=== PATIENT | female | born 1990 | race Caucasian/White ===

== ENCOUNTER 2020-01-24 02:26 | Observation (INO) | payer BC ==
[2020-01-24] MEDS ORDERED: Tranexamic Acid 1,000 MG in Sodium Chloride 0.9% 100 ML IV ONE ×2 (02:29→03:05)
[2020-01-24] MEDS ORDERED: Calcium Gluconate 10% 1 GM/10 ML SDV IVPUSH ONE ×3 (02:29→19:44)
[2020-01-24] MEDS ORDERED: ePHEDrine 50 MG/ML SDV ONE (02:49)
[2020-01-24] MEDS ORDERED: Midazolam 1 MG/ML 2 ML SDV ONE (02:49)
[2020-01-24] MEDS ORDERED: Sodium Chloride 0.9% 20 ML ONE (02:49)
[2020-01-24] MEDS ORDERED: fentaNYL 250 MCG/5 ML SDV ONE (02:49)
[2020-01-24] MEDS ORDERED: ceFAZolin 1 GM Vial ONE (02:49)
[2020-01-24] MEDS ORDERED: Etomidate 2 MG/ML 20 ML SDV IVPUSH ONE (02:49)
[2020-01-24] MEDS ORDERED: Calcium Chloride 10% 1 GM/10 ML Syringe IVPUSH PRN (03:06)
[2020-01-24] MEDS ORDERED: fentaNYL 100 MCG/2 ML SDV ONE (03:07)
[2020-01-24] MEDS ORDERED: EPINEPHrine 1 MG in Sodium Chloride 0.9% 100 ML IV ONE (03:10)
[2020-01-24] MEDS ORDERED: Clindamycin Phosphate in D5W 900 MG in Premix Bag 1 BAG IV ONE ×2 (03:24)
[2020-01-24] MEDS ORDERED: Atropine 0.1 MG/ML 10 ML Syringe IVPUSH PRN ×2 (03:36)
[2020-01-24] MEDS ORDERED: fentaNYL 100 MCG/2 ML SDV IVPUSH PRN (03:36)
[2020-01-24] MEDS ORDERED: Naloxone 0.4 MG/ML Syringe IVPUSH PRN (03:36)
[2020-01-24] MEDS ORDERED: 50% Dextrose in Water 50 ML Syringe IVPUSH PRN (03:36)
[2020-01-24] MEDS ORDERED: Albuterol 0.083% 2.5 MG/3 ML Neb Soln NEB PRN (03:36)
[2020-01-24] MEDS ORDERED: EPINEPHrine 1:10,000 1 MG/10 ML Syringe IVPUSH PRN (03:36)
[2020-01-24 03:51] LABS: BLOOD UREA NITROGEN,BUN 12 mg/dL (7.0-18.0); CARBON DIOXIDE,CO2 16.6 mmol/L (21.0-32.0); CHLORIDE,CL 105 mmol/L (98-107); GLUCOSE RANDOM 193 mg/dL (74-106); SODIUM,NA 136 mmol/L (136-145)
[2020-01-24] MEDS ORDERED: Phenylephrine 10 MG in Sodium Chloride 0.9% 99 ML IV SCH (04:15)
[2020-01-24] MEDS: Lactated Ringers 1,000 ML IV SCH ×3 (04:15→18:21)
--- NOTE | 2020-01-24 04:28 | PCM.SN.2 ---
- Free Text/Narrative Note: Pt presented to ER in hypovolemic shock. Dr Donohue at the bedside, consent obtained, pt taken directly to OR. CBC, CMP, Mg, Lactate, fibrinogen, pt/ptt, type and cross matched ordered. FFP 2 units ordered. Rt femoral groin line in place on arrival. Lt 2 liters of crystalloid intra-op for Lactate 5.8 Clindamycin 900mg IV started in PACU Transexamic Acid 1 gram IV over 10 minutes given intra-op; followed by Transexamic acid 1 gram IV over 8 hrs. LR 150mL/Hr phenylphrine 4mcg/min
--- NOTE | 2020-01-24 04:32 | PCM.PRNOTE ---
- Free Text/Narrative Note: Arterial line placement: Rt. wrist strapped and prepped with betadine. Arrow arterial kit used. Placement of the line very easy. Patient was under anesthesia already during line placement, tolerated well.
[2020-01-24] MEDS ORDERED: Promethazine 25 MG/ML SDV IM PRN (04:37)
[2020-01-24] MEDS ORDERED: Acetaminophen 325 MG Tab PO PRN (04:37)
[2020-01-24] MEDS ORDERED: Ondansetron 4 MG/2 ML SDV IVPUSH PRN (04:37)
[2020-01-24] MEDS ORDERED: Ibuprofen 600 MG Tab PO PRN (04:37)
[2020-01-24] MEDS ORDERED: Morphine 4 MG/ML Syringe IVPUSH PRN (04:37)
[2020-01-24] MEDS ORDERED: Magnesium Sulfate/Water 2 GM in Premix Bag 1 BAG IV ONE (04:39)
[2020-01-24] MEDS ORDERED: diphenhydrAMINE 50 MG/ML SDV ONE (04:52)
[2020-01-24] MEDS ORDERED: diphenhydrAMINE 50 MG/ML SDV IVPUSH ONE (04:52)
--- NOTE | 2020-01-24 04:52 | PCM.OPNOTE ---
- General Post-Op/Procedure Note Date of Surgery/Procedure: 01/24/20 Operative Procedure(s): Suction D&C Findings: Products of conception, large amounts of blood clots Pre Op Diagnosis: Incomplete spontaneous . Hemorrhage. Hypovolemic shock Post-Op Diagnosis: Same Anesthesia Technique: General ET Tube Primary Surgeon: Jenn Donohue Pathology: Products of conception Fluid Replacement, Intraop: 800 (Had all ready received 7U PRBC en route) EBL in mLs: 600 Complications: none known Condition: Critical Free Text/Narrative:: Intake & Output 01/23/20 01/23/20 01/24/20 14:59 22:59 06:59 Output Total 450 Balance -450
[2020-01-24] MEDS ORDERED: diphenhydrAMINE 50 MG/ML SDV IVPUSH PRN (05:09)
[2020-01-24] MEDS ORDERED: methylPREDNISolone 4 MG Tab 21 Tab/Dosepak PO SCH (05:15)
--- NOTE | 2020-01-24 05:23 | PCM.HP.2 ---
H&P History of Present Illness - General Date of Service: 01/24/20 Admit Problem/Dx: Admission Diagnosis/Problem Admission Diagnosis/Problem Hypovolemic shock Source of Information: EMS, Family History Limitations: Reports: Altered Mental Status - History of Present Illness Initial Comments - Free Text/Narative: Patient with known missed --opted for cytotec vaginally to help induce miscarriage. Patient dosed earlier today. This evening, with bleeding and passage of tissue became light headed and dizzy. Presented to [facility]. She was found to have orthostatic hypotension. Hemoglobin was 13. Thus provided opted to monitor her overnight with iv fluids. Shortly after being on the floor with continued bleeding, she decompensated with hypotension symptoms. He then called me. I asked for her to be transferred. Prior to being able to be transferred, became bradycardic. En route, received 7 U unmatched PRBCs. Hemoglobin prior to leaving [facility] was 10.7 She continues to have vaginal bleeding. Stated they did fundal massage and gave pitocin. Onset of Symptoms: Reports: Today - Related Data Allergies/Adverse Reactions: Allergies Allergy/AdvReac Type Severity Reaction Status Date / Time cephalexin Allergy Severe Arrhythmias Verified 01/24/20 04:38 Latex, Natural Rubber Allergy Intermediate Itching Verified 01/24/20 04:38 Home Medications: Home Meds Levothyroxine Sodium [Synthroid] 75 mcg PO 01/24/20 [History] Liothyronine [Cytomel] 5 mcg PO DAILY 01/24/20 [History] nitrofurantoin macrocrystaL [Nitrofurantoin] 100 mg PO 01/24/20 [History] Past Medical History - Past Health History Medical/Surgical History: Denies Medical/Surgical History Endocrine/Metabolic History: Reports: Hypothyroidism - Past Surgical History HEENT Surgical History: Reports: Myringotomy w Tube(s) Female Surgical History: Reports: Section Social & Family History - Family History Family Medical History: Noncontributory - Tobacco Use Smoking Status *Q: Current Every Day Smoker - Caffeine Use Caffeine Use: Reports: Coffee - Alcohol Use Alcohol Use History: Yes Alcohol Use Frequency: Socially - Recreational Drug Use Recreational Drug Use: No Drug Use in Last 12 Months: No - Living Situation & Occupation Living situation: Reports: H&P Review of Systems - Review of Systems: Review Of Systems: See Below General: Reports: Weakness HEENT: Reports: No Symptoms Pulmonary: Reports: No Symptoms Cardiovascular: Reports: Lightheadedness Gastrointestinal: Reports: Abdominal Pain Genitourinary: Reports: No Symptoms Musculoskeletal: Reports: No Symptoms Skin: Reports: Mottled, Pallor Psychiatric: Reports: Confusion, Anxiety Neurological: Reports: Confusion, Dizziness, Weakness Hematologic/Lymphatic: Reports: No Symptoms Exam - Exam Exam: See Below - Vital Signs Vital Signs: Last Vital Signs Temp 36.4 C 01/24/20 03:46 Pulse 77 01/24/20 04:30 Resp 15 01/24/20 04:30 BP 96/60 01/24/20 04:30 Pulse Ox 100 01/24/20 04:30 - Exam Quality Assessment: Central Line/PICC General: Severe Distress HEENT: Conjunctiva Clear Neck: Supple, Trachea Midline Lungs: Clear to Auscultation Cardiovascular: Tachycardia GI/Abdominal Exam: Normal Bowel Sounds, Soft, No Mass. No: Guarding (Female) Exam: Vaginal Bleeding (large amount of clots in vault) Back Exam: Normal Inspection Extremities: Slow Capillary Refill, Mottled, Pallor Peripheral Pulses: 1+: Radial (L), Radial (R), 2+: Carotid (L), Carotid (R) Skin: Dry, Cool Neuro Extensive - Mental Status: Disorientation to Time, Slow Response to Commands Psychiatric: Anxious, Agitated - Patient Data Lab Results Last 24 hrs: Laboratory Results - last 24 hr 01/24/20 01/24/20 01/24/20 Range/Units 03:00 03:10 03:10 WBC 18.22 H (4.0-11.0) K/uL RBC 5.08 (4.30-5.90) M/uL Hgb 15.3 (12.0-16.0) g/dL Hct 43.7 (36.0-46.0) % MCV 86.0 (80.0-98.0) fL MCH 30.1 (27.0-32.0) pg MCHC 35.0 (31.0-37.0) g/dL RDW Std Deviation 40.3 (28.0-62.0) fl RDW Coeff of Gabriel 13 (11.0-15.0) % Plt Count 131 L (150-400) K/uL MPV 11.00 (7.40-12.00) fL Neut % (Auto) 89.8 H (48.0-80.0) % Lymph % (Auto) 5.3 L (16.0-40.0) % Peach % (Auto) 4.8 (0.0-15.0) % Eos % (Auto) 0.0 (0.0-7.0) % Baso % (Auto) 0.1 (0.0-1.5) % Neut # (Auto) 16.4 H (1.4-5.7) K/uL Lymph # (Auto) 1.0 (0.6-2.4) K/uL Peach # (Auto) 0.9 H (0.0-0.8) K/uL Eos # (Auto) 0.0 (0.0-0.7) K/uL Baso # (Auto) 0.0 (0.0-0.1) K/uL INR APTT (18.6-31.3) SEC Fibrinogen (215-411) mg/dL Lactate (0.20-2.00) mmol/L Sodium 136 (136-145) mmol/L Potassium 4.0 (3.5-5.1) mmol/L Chloride 105 (98-107) mmol/L Carbon Dioxide 16.6 L (21.0-32.0) mmol/L BUN 12 (7.0-18.0) mg/dL Creatinine 0.9 (0.6-1.0) mg/dL Est Cr Clr Drug Dosing TNP Estimated GFR (MDRD) > 60.0 ml/min Glucose 193 H (74-106) mg/dL Calcium 9.1 (8.5-10.1) mg/dL Magnesium (1.8-2.4) mg/dL Total Bilirubin 2.4 H (0.2-1.0) mg/dL AST 33 (15-37) IU/L ALT 30 (14-63) IU/L Alkaline Phosphatase 44 L (46-116) U/L Total Protein 5.2 L (6.4-8.2) g/dL Albumin 3.2 L (3.4-5.0) g/dL Globulin 2.0 L (2.6-4.0) g/dL Albumin/Globulin Ratio 1.6 (0.9-1.6) COVID-19 (CRISTÓBAL) NEGATIVE (NEGATIVE) Blood Type Antibody Screen Crossmatch 01/24/20 01/24/20 01/24/20 Range/Units 03:10 03:10 03:10 WBC (4.0-11.0) K/uL RBC (4.30-5.90) M/uL Hgb (12.0-16.0) g/dL Hct (36.0-46.0) % MCV (80.0-98.0) fL MCH (27.0-32.0) pg MCHC (31.0-37.0) g/dL RDW Std Deviation (28.0-62.0) fl RDW Coeff of Gabriel (11.0-15.0) % Plt Count (150-400) K/uL MPV (7.40-12.00) fL Neut % (Auto) (48.0-80.0) % Lymph % (Auto) (16.0-40.0) % Peach % (Auto) (0.0-15.0) % Eos % (Auto) (0.0-7.0) % Baso % (Auto) (0.0-1.5) % Neut # (Auto) (1.4-5.7) K/uL Lymph # (Auto) (0.6-2.4) K/uL Peach # (Auto) (0.0-0.8) K/uL Eos # (Auto) (0.0-0.7) K/uL Baso # (Auto) (0.0-0.1) K/uL INR 1.17 APTT 17.9 L (18.6-31.3) SEC Fibrinogen 133 L (215-411) mg/dL Lactate (0.20-2.00) mmol/L Sodium (136-145) mmol/L Potassium (3.5-5.1) mmol/L Chloride (98-107) mmol/L Carbon Dioxide (21.0-32.0) mmol/L BUN (7.0-18.0) mg/dL Creatinine (0.6-1.0) mg/dL Est Cr Clr Drug Dosing Estimated GFR (MDRD) ml/min Glucose (74-106) mg/dL Calcium (8.5-10.1) mg/dL Magnesium (1.8-2.4) mg/dL Total Bilirubin (0.2-1.0) mg/dL AST (15-37) IU/L ALT (14-63) IU/L Alkaline Phosphatase (46-116) U/L Total Protein (6.4-8.2) g/dL Albumin (3.4-5.0) g/dL Globulin (2.6-4.0) g/dL Albumin/Globulin Ratio (0.9-1.6) COVID-19 (CRISTÓBAL) (NEGATIVE) Blood Type Antibody Screen Crossmatch See Detail 01/24/20 01/24/20 01/24/20 Range/Units 03:10 03:10 03:10 WBC (4.0-11.0) K/uL RBC (4.30-5.90) M/uL Hgb (12.0-16.0) g/dL Hct (36.0-46.0) % MCV (80.0-98.0) fL MCH (27.0-32.0) pg MCHC (31.0-37.0) g/dL RDW Std Deviation (28.0-62.0) fl RDW Coeff of Gabriel (11.0-15.0) % Plt Count (150-400) K/uL MPV (7.40-12.00) fL Neut % (Auto) (48.0-80.0) % Lymph % (Auto) (16.0-40.0) % Peach % (Auto) (0.0-15.0) % Eos % (Auto) (0.0-7.0) % Baso % (Auto) (0.0-1.5) % Neut # (Auto) (1.4-5.7) K/uL Lymph # (Auto) (0.6-2.4) K/uL Peach # (Auto) (0.0-0.8) K/uL Eos # (Auto) (0.0-0.7) K/uL Baso # (Auto) (0.0-0.1) K/uL INR APTT (18.6-31.3) SEC Fibrinogen (215-411) mg/dL Lactate 5.8 H* (0.20-2.00) mmol/L Sodium (136-145) mmol/L Potassium (3.5-5.1) mmol/L Chloride (98-107) mmol/L Carbon Dioxide (21.0-32.0) mmol/L BUN (7.0-18.0) mg/dL Creatinine (0.6-1.0) mg/dL Est Cr Clr Drug Dosing Estimated GFR (MDRD) ml/min Glucose (74-106) mg/dL Calcium (8.5-10.1) mg/dL Magnesium 1.5 L (1.8-2.4) mg/dL Total Bilirubin (0.2-1.0) mg/dL AST (15-37) IU/L ALT (14-63) IU/L Alkaline Phosphatase (46-116) U/L Total Protein (6.4-8.2) g/dL Albumin (3.4-5.0) g/dL Globulin (2.6-4.0) g/dL Albumin/Globulin Ratio (0.9-1.6) COVID-19 (CRISTÓBAL) (NEGATIVE) Blood Type A NEGATIVE Antibody Screen NEGATIVE Crossmatch See Detail Result Diagrams: 01/24/20 03:10 01/24/20 03:10 Sepsis Event Note - Evaluation Sepsis Screening Result: No Definite Risk - Focused Exam Vital Signs: Vital Signs Temp Pulse Resp BP BP Pulse Ox 01/24/20 04:30 77 15 96/60 01/24/20 04:25 86 15 106/56 L 01/24/20 04:15 87 15 104/63 01/24/20 04:10 90 16 88/55 L 01/24/20 04:05 74 15 93/56 L 01/24/20 04:00 63 15 103/58 L 01/24/20 03:55 61 15 108/57 L 01/24/20 03:50 66 15 103/58 L 01/24/20 03:46 36.4 C 73 16 110/77 01/24/20 02:50 118 H 22 H 206/186 H 96 - Problem List (1) Incomplete with shock SNOMED Code(s): 524968812, [id number] ICD Code: O03.31 - SHOCK FOLLOWING INCOMPLETE SPONTANEOUS Status: Acute Problem List Initiated/Reviewed/Updated: Yes Orders Last 24hrs: Active Orders 24 hr Category Date Time Status Patient Status [ADT] Routine ADT 01/24/20 04:37 Active Antiembolic Devices [RC] PER UNIT ROUTINE Care 01/24/20 04:38 Active Intake and Output [RC] PER UNIT ROUTINE Care 01/24/20 04:39 Active Notify Provider Intake and Out [RC] ASDIRECTED Care 01/24/20 04:37 Active Notify Provider Vital Signs [RC] ASDIRECTED Care 01/24/20 04:37 Active Oxygen Therapy [RC] ASDIRECTED Care 01/24/20 04:37 Active Pulse Oximetry [RC] PER UNIT ROUTINE Care 01/24/20 04:39 Active RT Incentive Spirometry [RC] Q2HWA Care 01/24/20 04:37 Active Up With Assistance [RC] PER UNIT ROUTINE Care 01/24/20 04:37 Active Urinary Catheter Removal [RC] Per Unit Routine Care 01/24/20 04:37 Active Vital Signs [RC] PER UNIT ROUTINE Care 01/24/20 04:37 Active Regular Diet [DIET] Diet 01/24/20 Breakfast Active Chest 1V Frontal [CR] Stat Exams 01/24/20 04:53 Ordered CBC WITH AUTO DIFF [HEME] Routine Lab 01/24/20 10:00 Ordered COMPREHENSIVE METABOLIC PN,CMP [CHEM] Routine Lab 01/24/20 10:00 Ordered CRYOPRECIPITATE [BBK] Stat Lab 01/24/20 03:10 Results FIBRINOGEN [COAG] Stat Lab 01/24/20 10:00 Ordered FRESH FROZEN PLASMA [BBK] Stat Lab 01/24/20 03:10 Results LACTIC ACID,WHOLE BLOOD [BG] Stat Lab 01/24/20 10:00 Ordered MAGNESIUM [CHEM] Routine Lab 01/24/20 10:00 Ordered RED BLOOD CELLS LP [BBK] Stat Lab 01/24/20 03:10 Results TRANSFUSION REACTION [BBK] Routine Lab 01/24/20 05:11 Ordered TYPE AND SCREEN [BBK] Stat Lab 01/24/20 03:10 Results TYPE AND SCREEN [BBK] Stat Lab 01/24/20 03:10 Results Acetaminophen [TylenoL] Med 01/24/20 04:37 Active 650 mg PO Q4H PRN Albuterol [Proventil Neb Soln] Med 01/24/20 03:36 Active 2.5 mg NEB ONETIME PRN Atropine [Atropine 0.1 MG/ML] Med 01/24/20 03:36 Active 0.5 mg IVPUSH ASDIRECTED PRN Atropine [Atropine 0.1 MG/ML] Med 01/24/20 03:36 Active 1 mg IVPUSH ASDIRECTED PRN Calcium Chloride [Calcium Chloride 10%] Med 01/24/20 03:06 Active 1 gm IVPUSH ONETIME PRN Dextrose 50% in Water Med 01/24/20 03:36 Active 50 ml IVPUSH ASDIRECTED PRN EPINEPHrine [EPINEPHrine 1:10,000] Med 01/24/20 03:36 Active 1 mg IVPUSH ASDIRECTED PRN Ibuprofen [Motrin] Med 01/24/20 04:37 Active 600 mg PO Q6H PRN Lactated Ringers [Ringers, Lactated] 1,000 ml Med 01/24/20 04:45 Active IV ASDIRECTED Magnesium Sulfate/Water [Magnesium Sulfate in Water Med 01/24/20 04:39 Active Premix] 2 gm Premix Bag 1 bag IV ONETIME Morphine Med 01/24/20 04:37 Active 4 mg IVPUSH Q2H PRN Naloxone [Narcan] Med 01/24/20 03:36 Active 0.1 mg IVPUSH ASDIRECTED PRN Ondansetron [Zofran] Med 01/24/20 04:37 Active 4 mg IVPUSH Q6H PRN Phenylephrine [Sandor-Synephrine] 10 mg Med 01/24/20 04:15 Active Sodium Chloride 0.9% [Normal Saline] 99 ml IV TITRATE Promethazine [Phenergan] Med 01/24/20 04:37 Active 25 mg IM Q6H PRN diphenhydrAMINE [Benadryl] Med 01/24/20 05:09 Ordered 25 mg IVPUSH Q6H PRN fentaNYL [Sublimaze] Med 01/24/20 03:36 Active 50 - 100 mcg IVPUSH Q5M PRN methylPREDNISolone [Medrol] Med 01/24/20 05:15 Ordered See Dose Instructions PO ASDIRECTED Peripheral IV Discontinue [OM.PC] Routine Ot 01/24/20 04:37 Ordered Sequential Compression Device [OM.PC] Per Unit Routine Oth 01/24/20 04:37 Ordered Transfuse Cryoprecipitate [COMM] Stat Oth 01/24/20 04:31 Ordered Transfuse Fresh Frozen Plasma [COMM] Stat Oth 01/24/20 03:04 Ordered Resuscitation Status Routine Resus Stat 01/24/20 04:37 Ordered Medication Orders Acetaminophen (Tylenol) 650 mg PO Q4H PRN PRN Reason: Pain (mild 1-3) Albuterol (Proventil Neb Soln) 2.5 mg NEB ONETIME PRN PRN Reason: Wheezing Atropine Sulfate (Atropine 0.1 Mg/Ml) 0.5 mg IVPUSH ASDIRECTED PRN PRN Reason: Hypo-perfusion Atropine Sulfate (Atropine 0.1 Mg/Ml) 1 mg IVPUSH ASDIRECTED PRN PRN Reason: Hypo-Perfusion Calcium Chloride (Calcium Chloride 10%) 1 gm IVPUSH ONETIME PRN PRN Reason: MBT Dextrose/Water (Dextrose 50% In Water) 50 ml IVPUSH ASDIRECTED PRN PRN Reason: Hypoglycemia Diphenhydramine HCl (Benadryl) 25 mg IVPUSH Q6H PRN PRN Reason: Hives Epinephrine HCl (Epinephrine 1:10,000) 1 mg IVPUSH ASDIRECTED PRN PRN Reason: ACLS Guidelines Fentanyl (Sublimaze) 50 - 100 mcg IVPUSH Q5M PRN PRN Reason: Pain Phenylephrine HCl 10 mg/ (Sodium Chloride) 100 mls @ 24 mls/hr IV TITRATE [place]; Protocol Magnesium Sulfate 2 gm/ Premix 50 mls @ 50 mls/hr IV ONETIME ONE Stop: 01/24/20 05:38 Lactated Ringer's (Ringers, Lactated) 1,000 mls @ 150 mls/hr IV ASDIRECTED [place] Ibuprofen (Motrin) 600 mg PO Q6H PRN PRN Reason: Pain (mild 1-3) Methylprednisolone (Medrol) 0 mg PO ASDIRECTED [place]; Protocol Morphine Sulfate (Morphine) 4 mg IVPUSH Q2H PRN PRN Reason: Pain (severe 7-10) Naloxone HCl (Narcan) 0.1 mg IVPUSH ASDIRECTED PRN PRN Reason: Respiratory Depression Ondansetron HCl (Zofran) 4 mg IVPUSH Q6H PRN PRN Reason: Nausea/Vomiting Promethazine HCl (Phenergan) 25 mg IM Q6H PRN PRN Reason: Nausea/Vomiting Incomplete SAB Hemorrhage Hypovolemic shock Assessment/Plan Comment:: Proceed emergently with suction D&C. Patient has received 7 U PRBCs unmatched en route. She also received 2 gm calcium gluconate. She is given 1 gm tranexamic acid and 1 U FFP ordered. Will await labs and further administer products as indicated. Anesthesia is present and aware of critical status. Explained to need to proceed wtih D&C in order to stop the bleeding. Risks discussed including infection, bleeding, possible trauma to surrounding organs and if bleeding is not able to be controlled, possible hysterectomy. Risks of anesthesia and DVT also discussed. Proper consents obtained.
--- NOTE | 2020-01-24 05:40 | PCM.SN.2 ---
- Free Text/Narrative Note: Patient arrived to ICU and shortly thereafter started feeling short of breath. It was noted she was developing urticaria along her inner thighs and inner arms. She is wheezing. Appears to be having an allergic reaction. Proceeded with 50 mg iv benadryl. Patient is feeling better after receiving. We suspect an allergy most likely to clindamycin or perhaps the betadine soap used in prep. Will begin solumedrol dose rebeca and iv benadryl ordered as needed for hives. She is no longer wheezing and VS remained stable throughout the event. With recent labs, proceeded with 2 U FFP and a unit of cryo precipitate. She will also continue to receive a second dose of TXA over the next hours. Labs will be followed up at 10 am. Patient has urine output. Blood pressure and pulse are remaining stable. At this juncture will have received 7U PRBCS, 2 U FFP, 1 U cryoprecipitate.
--- NOTE | 2020-01-24 05:50 | CR ---
Indication: Shortness of breath Technique: Chest 1 view Comparison: None Findings/Impression: Cardiovascular and mediastinum: Heart size and vasculature are normal in caliber and appearance. Lungs and pleural space: Lungs are clear. No sign of infiltrate or mass. No sign of pleural effusion. No pneumothorax. Bones and soft tissues: No acute findings. Dictated by Phil Chavarria MD @ Jan 24 2020 5:49AM Signed by Dr. Phil Chavarria @ Jan 24 2020 5:50AM
[2020-01-24] MEDS ORDERED: Magnesium Sulfate/Water 50 ML ONE (06:13)
--- NOTE | 2020-01-24 07:17 | OR ---
SURGEON: Jenn Donohue M.D. DATE OF PROCEDURE: 01/24/2020 PREOPERATIVE DIAGNOSES: 1. Incomplete spontaneous with hemorrhage. 2. Hypovolemic shock. POSTOPERATIVE DIAGNOSES: 1. Incomplete spontaneous with hemorrhage. 2. Hypovolemic shock. PROCEDURE: Suction D and C. ANESTHESIA: General endotracheal anesthesia. FLUIDS: 800 mL of crystalloid in OR. FINDINGS: Products of conception and large amount of clot in the vaginal vault. DISPOSITION: Patient to ICU in guarded condition. PROCEDURE DETAILS: Twila is a 30-year-old female with known missed who was evaluated in clinic last week and who opted to do vaginal Cytotec. She does live in [place], [place]. She underwent dosing of this on 01/23/2020. She had response to the medication and began passing tissue and clot, but during this process, began feeling lightheaded and dizzy and therefore presented to the emergency department in [place], [place]. On initial evaluation, the provider noted that she had orthostatic hypotension, therefore started on IV, gave her IV fluids and opted to observe her overnight. However, once on the floor, as the patient was still bleeding, she began to decompensate and have further hypotension and then bradycardia. He called me at this juncture for the patient to be transferred. On arrival, the patient actually ended up receiving 7 units of packed red blood cells en route. Upon her arrival, she appeared pale, agitated, clearly in hypovolemic shock. She had a large amount of clot in the vaginal vault. On presentation, she underwent dosing of 1 gram of TXA. She had received 2 grams of calcium gluconate and FFP was ordered. We immediately proceeded to go to the OR for the suction D and C. I discussed the risks of procedure with her . Proper consent obtained. Once in the OR, the patient was placed in modified dorsal lithotomy position. A Toro catheter had been placed. The patient underwent general endotracheal anesthesia. She was prepped and draped in the usual sterile fashion. Time-out was performed. A speculum was introduced in the vagina. Large amounts of copious clots were now removed from the vaginal vault. The anterior lip of the cervix was visualized and grasped with an allis clamp. Using a 10 mm suction curette, this was introduced in the uterine cavity to the fundus, and then with suction applied, was able to evacuate the uterus completely. There was still a fair amount of tissue noted within the uterine cavity. Once this was completely removed and gentle sharp curettage of the endometrium was performed, hemostasis was actually evident. Uterus remained firm. Bleeding was closely observed and was minimal. All specimens will be sent to pathology. Given this response, the patient has already had a central line placed by the flight crew prior to leaving from [place] and an arterial line was placed by Anesthesia. She remained hypotensive. However, pulses stabilized and she does have urine output. All instruments were removed from the vagina. Sponge and instrument count were correct. The patient is going to go to PACU and then the ICU. We will continue to resuscitate her as indicated. At this point, planning for 2 units of FFP. She will continue to receive another gram of TXA over the next few hours. She will be on low-dose Sandor-Synephrine drip and we will plan to do a unit of cryoprecipitate as well. MINO / DESTINY /[id number] JULES
[2020-01-24] MEDS ORDERED: Lactated Ringers 1,000 ML IV ONE (07:27)
[2020-01-24] MEDS: Piperacillin/Tazobactam 3.375 GM in Sodium Chloride 0.9% 50 ML IV SCH ×3 (08:39→20:23)
[2020-01-24] MEDS: methylPREDNISolone 4 MG Tab 21 Tab/Dosepak PO SCH ×4 (09:20→21:39)
[2020-01-24 10:33] LABS: BLOOD UREA NITROGEN,BUN 8 mg/dL (7.0-18.0); CARBON DIOXIDE,CO2 17.6 mmol/L (21.0-32.0); CHLORIDE,CL 113 mmol/L (98-107); GLUCOSE RANDOM 97 mg/dL (74-106); SODIUM,NA 142 mmol/L (136-145)
[2020-01-24] MEDS: Acetaminophen 325 MG Tab PO PRN ×2 (11:22→17:55)
[2020-01-24] MEDS ORDERED: Magnesium Sulfate (4.06 MEQ/ML) 5 GM/10 ML SDV IV ONE ×2 (11:45→19:44)
--- NOTE | 2020-01-24 12:20 | PCM.SURGPN ---
- General Info Date of Service: 01/24/20 POD#: 0 Functional Status: Reports: Pain Controlled, Tolerating Diet - Review of Systems General: Reports: Weakness, Fatigue. Denies: Fever Pulmonary: Denies: Shortness of Breath Cardiovascular: Denies: Chest Pain, Palpitations Gastrointestinal: Denies: Abdominal Pain, Nausea, Vomiting Genitourinary: Reports: No Symptoms Skin: Reports: Pallor, Rash (urticaria is resolving nicely along thighs and arms). Denies: Mottled, Diaphoresis Neurological: Denies: Confusion, Dizziness, Headache, Paresthesia Psychiatric: Reports: No Symptoms - Patient Data Vitals - Most Recent: Last Vital Signs Temp 36.8 C 01/24/20 08:00 Pulse 77 01/24/20 04:30 Resp 13 01/24/20 11:00 BP 106/57 L 01/24/20 11:00 Pulse Ox 99 01/24/20 11:00 Weight - Most Recent: 89.981 kg I&O - Last 24 Hours: Intake & Output 01/23/20 01/24/20 01/24/20 22:59 06:59 14:59 Intake Total 1591 1599 Output Total 600 2900 Balance 991 -1301 Lab Results Last 24 Hrs: Laboratory Results - last 24 hr 01/24/20 01/24/20 01/24/20 Range/Units 03:00 03:10 03:10 WBC 18.22 H (4.0-11.0) K/uL RBC 5.08 (4.30-5.90) M/uL Hgb 15.3 (12.0-16.0) g/dL Hct 43.7 (36.0-46.0) % MCV 86.0 (80.0-98.0) fL MCH 30.1 (27.0-32.0) pg MCHC 35.0 (31.0-37.0) g/dL RDW Std Deviation 40.3 (28.0-62.0) fl RDW Coeff of Gabriel 13 (11.0-15.0) % Plt Count 131 L (150-400) K/uL MPV 11.00 (7.40-12.00) fL Neut % (Auto) 89.8 H (48.0-80.0) % Lymph % (Auto) 5.3 L (16.0-40.0) % [place] % (Auto) 4.8 (0.0-15.0) % Eos % (Auto) 0.0 (0.0-7.0) % Baso % (Auto) 0.1 (0.0-1.5) % Neut # (Auto) 16.4 H (1.4-5.7) K/uL Lymph # (Auto) 1.0 (0.6-2.4) K/uL [place] # (Auto) 0.9 H (0.0-0.8) K/uL Eos # (Auto) 0.0 (0.0-0.7) K/uL Baso # (Auto) 0.0 (0.0-0.1) K/uL INR APTT (18.6-31.3) SEC Fibrinogen (215-411) mg/dL ABG pH (7.35-7.45) ABG pCO2 (35-45) mmHG ABG pO2 (75-100) mmHG ABG HCO3 (22-26) mEq/L ABG Total CO2 ABG Base Excess (-2.0-2.0) Lactate (0.20-2.00) mmol/L Sodium 136 (136-145) mmol/L Potassium 4.0 (3.5-5.1) mmol/L Chloride 105 (98-107) mmol/L Carbon Dioxide 16.6 L (21.0-32.0) mmol/L BUN 12 (7.0-18.0) mg/dL Creatinine 0.9 (0.6-1.0) mg/dL Est Cr Clr Drug Dosing TNP Estimated GFR (MDRD) > 60.0 ml/min Glucose 193 H (74-106) mg/dL Calcium 9.1 (8.5-10.1) mg/dL Magnesium (1.8-2.4) mg/dL Total Bilirubin 2.4 H (0.2-1.0) mg/dL AST 33 (15-37) IU/L ALT 30 (14-63) IU/L Alkaline Phosphatase 44 L (46-116) U/L Total Protein 5.2 L (6.4-8.2) g/dL Albumin 3.2 L (3.4-5.0) g/dL Globulin 2.0 L (2.6-4.0) g/dL Albumin/Globulin Ratio 1.6 (0.9-1.6) COVID-19 (CRISTÓBAL) NEGATIVE (NEGATIVE) Blood Type Antibody Screen Screen RhIG Candidate? Rhogam Indicated Crossmatch Tx Rx Implicated Unit 1 Unit 1 Component Pre-Trans Blood Type Pre-Trans Vis Hemolysis Pre-Trans Icterus Post-Trans Blood Type Post-Tx Visible Hemolys Post-Trans Icterus Post-Trans TOM Poly Reaction Interpretation 01/24/20 01/24/20 01/24/20 Range/Units 03:10 03:10 03:10 WBC (4.0-11.0) K/uL RBC (4.30-5.90) M/uL Hgb (12.0-16.0) g/dL Hct (36.0-46.0) % MCV (80.0-98.0) fL MCH (27.0-32.0) pg MCHC (31.0-37.0) g/dL RDW Std Deviation (28.0-62.0) fl RDW Coeff of Gabriel (11.0-15.0) % Plt Count (150-400) K/uL MPV (7.40-12.00) fL Neut % (Auto) (48.0-80.0) % Lymph % (Auto) (16.0-40.0) % [place] % (Auto) (0.0-15.0) % Eos % (Auto) (0.0-7.0) % Baso % (Auto) (0.0-1.5) % Neut # (Auto) (1.4-5.7) K/uL Lymph # (Auto) (0.6-2.4) K/uL [place] # (Auto) (0.0-0.8) K/uL Eos # (Auto) (0.0-0.7) K/uL Baso # (Auto) (0.0-0.1) K/uL INR 1.17 APTT 17.9 L (18.6-31.3) SEC Fibrinogen 133 L (215-411) mg/dL ABG pH (7.35-7.45) ABG pCO2 (35-45) mmHG ABG pO2 (75-100) mmHG ABG HCO3 (22-26) mEq/L ABG Total CO2 ABG Base Excess (-2.0-2.0) Lactate (0.20-2.00) mmol/L Sodium (136-145) mmol/L Potassium (3.5-5.1) mmol/L Chloride (98-107) mmol/L Carbon Dioxide (21.0-32.0) mmol/L BUN (7.0-18.0) mg/dL Creatinine (0.6-1.0) mg/dL Est Cr Clr Drug Dosing Estimated GFR (MDRD) ml/min Glucose (74-106) mg/dL Calcium (8.5-10.1) mg/dL Magnesium (1.8-2.4) mg/dL Total Bilirubin (0.2-1.0) mg/dL AST (15-37) IU/L ALT (14-63) IU/L Alkaline Phosphatase (46-116) U/L Total Protein (6.4-8.2) g/dL Albumin (3.4-5.0) g/dL Globulin (2.6-4.0) g/dL Albumin/Globulin Ratio (0.9-1.6) COVID-19 (CRISTÓBAL) (NEGATIVE) Blood Type Cancelled Antibody Screen Cancelled Screen RhIG Candidate? Rhogam Indicated Crossmatch See Detail Tx Rx Implicated Unit 1 Unit 1 Component Pre-Trans Blood Type Pre-Trans Vis Hemolysis Pre-Trans Icterus Post-Trans Blood Type Post-Tx Visible Hemolys Post-Trans Icterus Post-Trans TOM Poly Reaction Interpretation 01/24/20 01/24/20 01/24/20 Range/Units 03:10 03:10 03:10 WBC (4.0-11.0) K/uL RBC (4.30-5.90) M/uL Hgb (12.0-16.0) g/dL Hct (36.0-46.0) % MCV (80.0-98.0) fL MCH (27.0-32.0) pg MCHC (31.0-37.0) g/dL RDW Std Deviation (28.0-62.0) fl RDW Coeff of Gabriel (11.0-15.0) % Plt Count (150-400) K/uL MPV (7.40-12.00) fL Neut % (Auto) (48.0-80.0) % Lymph % (Auto) (16.0-40.0) % [place] % (Auto) (0.0-15.0) % Eos % (Auto) (0.0-7.0) % Baso % (Auto) (0.0-1.5) % Neut # (Auto) (1.4-5.7) K/uL Lymph # (Auto) (0.6-2.4) K/uL [place] # (Auto) (0.0-0.8) K/uL Eos # (Auto) (0.0-0.7) K/uL Baso # (Auto) (0.0-0.1) K/uL INR APTT (18.6-31.3) SEC Fibrinogen (215-411) mg/dL ABG pH (7.35-7.45) ABG pCO2 (35-45) mmHG ABG pO2 (75-100) mmHG ABG HCO3 (22-26) mEq/L ABG Total CO2 ABG Base Excess (-2.0-2.0) Lactate 5.8 H* (0.20-2.00) mmol/L Sodium (136-145) mmol/L Potassium (3.5-5.1) mmol/L Chloride (98-107) mmol/L Carbon Dioxide (21.0-32.0) mmol/L BUN (7.0-18.0) mg/dL Creatinine (0.6-1.0) mg/dL Est Cr Clr Drug Dosing Estimated GFR (MDRD) ml/min Glucose (74-106) mg/dL Calcium (8.5-10.1) mg/dL Magnesium 1.5 L (1.8-2.4) mg/dL Total Bilirubin (0.2-1.0) mg/dL AST (15-37) IU/L ALT (14-63) IU/L Alkaline Phosphatase (46-116) U/L Total Protein (6.4-8.2) g/dL Albumin (3.4-5.0) g/dL Globulin (2.6-4.0) g/dL Albumin/Globulin Ratio (0.9-1.6) COVID-19 (CRISTÓBAL) (NEGATIVE) Blood Type A NEGATIVE Antibody Screen NEGATIVE Screen RhIG Candidate? Rhogam Indicated Crossmatch See Detail Tx Rx Implicated Unit 1 Unit 1 Component Pre-Trans Blood Type Pre-Trans Vis Hemolysis Pre-Trans Icterus Post-Trans Blood Type Post-Tx Visible Hemolys Post-Trans Icterus Post-Trans TOM Poly Reaction Interpretation 01/24/20 01/24/20 01/24/20 Range/Units 05:15 05:15 07:55 WBC (4.0-11.0) K/uL RBC (4.30-5.90) M/uL Hgb (12.0-16.0) g/dL Hct (36.0-46.0) % MCV (80.0-98.0) fL MCH (27.0-32.0) pg MCHC (31.0-37.0) g/dL RDW Std Deviation (28.0-62.0) fl RDW Coeff of Gabriel (11.0-15.0) % Plt Count (150-400) K/uL MPV (7.40-12.00) fL Neut % (Auto) (48.0-80.0) % Lymph % (Auto) (16.0-40.0) % [place] % (Auto) (0.0-15.0) % Eos % (Auto) (0.0-7.0) % Baso % (Auto) (0.0-1.5) % Neut # (Auto) (1.4-5.7) K/uL Lymph # (Auto) (0.6-2.4) K/uL [place] # (Auto) (0.0-0.8) K/uL Eos # (Auto) (0.0-0.7) K/uL Baso # (Auto) (0.0-0.1) K/uL INR APTT (18.6-31.3) SEC Fibrinogen (215-411) mg/dL ABG pH 7.409 (7.35-7.45) ABG pCO2 27 L (35-45) mmHG ABG pO2 120 H (75-100) mmHG ABG HCO3 17 L (22-26) mEq/L ABG Total CO2 15.7 ABG Base Excess -6.7 L (-2.0-2.0) Lactate (0.20-2.00) mmol/L Sodium (136-145) mmol/L Potassium (3.5-5.1) mmol/L Chloride (98-107) mmol/L Carbon Dioxide (21.0-32.0) mmol/L BUN (7.0-18.0) mg/dL Creatinine (0.6-1.0) mg/dL Est Cr Clr Drug Dosing Estimated GFR (MDRD) ml/min Glucose (74-106) mg/dL Calcium (8.5-10.1) mg/dL Magnesium (1.8-2.4) mg/dL Total Bilirubin (0.2-1.0) mg/dL AST (15-37) IU/L ALT (14-63) IU/L Alkaline Phosphatase (46-116) U/L Total Protein (6.4-8.2) g/dL Albumin (3.4-5.0) g/dL Globulin (2.6-4.0) g/dL Albumin/Globulin Ratio (0.9-1.6) COVID-19 (CRISTÓBAL) (NEGATIVE) Blood Type Antibody Screen Screen Cancelled RhIG Candidate? Cancelled Rhogam Indicated YES, BABY RH UNKNOWN H Crossmatch Tx Rx Implicated Unit 1 [id number] Unit 1 Component PF-24/FFP Pre-Trans Blood Type A NEGATIVE Pre-Trans Vis Hemolysis NEGATIVE Pre-Trans Icterus 1+ Post-Trans Blood Type A NEGATIVE Post-Tx Visible Hemolys NEGATIVE Post-Trans Icterus 1+ Post-Trans TOM Poly NEGATIVE Reaction Interpretation NON-HEM TRANSF RX 01/24/20 01/24/20 01/24/20 Range/Units 07:55 07:55 10:05 WBC 11.25 H 9.81 (4.0-11.0) K/uL RBC 3.22 L 3.36 L (4.30-5.90) M/uL Hgb 9.8 L 10.1 L (12.0-16.0) g/dL Hct 27.5 L 28.5 L (36.0-46.0) % MCV 85.4 84.8 (80.0-98.0) fL MCH 30.4 30.1 (27.0-32.0) pg MCHC 35.6 35.4 (31.0-37.0) g/dL RDW Std Deviation 38.1 38.4 (28.0-62.0) fl RDW Coeff of Gabriel 13 13 (11.0-15.0) % Plt Count 104 L 106 L (150-400) K/uL MPV 10.90 10.90 (7.40-12.00) fL Neut % (Auto) 82.2 H 76.2 (48.0-80.0) % Lymph % (Auto) 10.8 L 16.5 (16.0-40.0) % Rad[place] % (Auto) 6.8 6.9 (0.0-15.0) % Eos % (Auto) 0.1 0.2 (0.0-7.0) % Baso % (Auto) 0.1 0.2 (0.0-1.5) % Neut # (Auto) 9.3 H 7.5 H (1.4-5.7) K/uL Lymph # (Auto) 1.2 1.6 (0.6-2.4) K/uL [place] # (Auto) 0.8 0.7 (0.0-0.8) K/uL Eos # (Auto) 0.0 0.0 (0.0-0.7) K/uL Baso # (Auto) 0.0 0.0 (0.0-0.1) K/uL INR APTT (18.6-31.3) SEC Fibrinogen (215-411) mg/dL ABG pH (7.35-7.45) ABG pCO2 (35-45) mmHG ABG pO2 (75-100) mmHG ABG HCO3 (22-26) mEq/L ABG Total CO2 ABG Base Excess (-2.0-2.0) Lactate 1.7 (0.20-2.00) mmol/L Sodium (136-145) mmol/L Potassium (3.5-5.1) mmol/L Chloride (98-107) mmol/L Carbon Dioxide (21.0-32.0) mmol/L BUN (7.0-18.0) mg/dL Creatinine (0.6-1.0) mg/dL Est Cr Clr Drug Dosing Estimated GFR (MDRD) ml/min Glucose (74-106) mg/dL Calcium (8.5-10.1) mg/dL Magnesium (1.8-2.4) mg/dL Total Bilirubin (0.2-1.0) mg/dL AST (15-37) IU/L ALT (14-63) IU/L Alkaline Phosphatase (46-116) U/L Total Protein (6.4-8.2) g/dL Albumin (3.4-5.0) g/dL Globulin (2.6-4.0) g/dL Albumin/Globulin Ratio (0.9-1.6) COVID-19 (CRISTÓBAL) (NEGATIVE) Blood Type Antibody Screen Screen RhIG Candidate? Rhogam Indicated Crossmatch Tx Rx Implicated Unit 1 Unit 1 Component Pre-Trans Blood Type Pre-Trans Vis Hemolysis Pre-Trans Icterus Post-Trans Blood Type Post-Tx Visible Hemolys Post-Trans Icterus Post-Trans TOM Poly Reaction Interpretation 01/24/20 01/24/20 Range/Units 10:05 10:05 WBC (4.0-11.0) K/uL RBC (4.30-5.90) M/uL Hgb (12.0-16.0) g/dL Hct (36.0-46.0) % MCV (80.0-98.0) fL MCH (27.0-32.0) pg MCHC (31.0-37.0) g/dL RDW Std Deviation (28.0-62.0) fl RDW Coeff of Gabriel (11.0-15.0) % Plt Count (150-400) K/uL MPV (7.40-12.00) fL Neut % (Auto) (48.0-80.0) % Lymph % (Auto) (16.0-40.0) % [place] % (Auto) (0.0-15.0) % Eos % (Auto) (0.0-7.0) % Baso % (Auto) (0.0-1.5) % Neut # (Auto) (1.4-5.7) K/uL Lymph # (Auto) (0.6-2.4) K/uL [place] # (Auto) (0.0-0.8) K/uL Eos # (Auto) (0.0-0.7) K/uL Baso # (Auto) (0.0-0.1) K/uL INR APTT (18.6-31.3) SEC Fibrinogen 207 L (215-411) mg/dL ABG pH (7.35-7.45) ABG pCO2 (35-45) mmHG ABG pO2 (75-100) mmHG ABG HCO3 (22-26) mEq/L ABG Total CO2 ABG Base Excess (-2.0-2.0) Lactate (0.20-2.00) mmol/L Sodium 142 (136-145) mmol/L Potassium 4.0 (3.5-5.1) mmol/L Chloride 113 H (98-107) mmol/L Carbon Dioxide 17.6 L (21.0-32.0) mmol/L BUN 8 (7.0-18.0) mg/dL Creatinine 0.7 (0.6-1.0) mg/dL Est Cr Clr Drug Dosing 120.58 Estimated GFR (MDRD) > 60.0 ml/min Glucose 97 (74-106) mg/dL Calcium 7.6 L (8.5-10.1) mg/dL Magnesium 1.7 L (1.8-2.4) mg/dL Total Bilirubin 2.6 H (0.2-1.0) mg/dL AST 22 (15-37) IU/L ALT 21 (14-63) IU/L Alkaline Phosphatase 34 L (46-116) U/L Total Protein 4.1 L (6.4-8.2) g/dL Albumin 2.5 L (3.4-5.0) g/dL Globulin 1.6 L (2.6-4.0) g/dL Albumin/Globulin Ratio 1.6 (0.9-1.6) COVID-19 (CRISTÓBAL) (NEGATIVE) Blood Type Antibody Screen Screen RhIG Candidate? Rhogam Indicated Crossmatch Tx Rx Implicated Unit 1 Unit 1 Component Pre-Trans Blood Type Pre-Trans Vis Hemolysis Pre-Trans Icterus Post-Trans Blood Type Post-Tx Visible Hemolys Post-Trans Icterus Post-Trans TOM Poly Reaction Interpretation Yvon Results Last 24 Hrs: Microbiology 01/24/20 07:55 Anaerobic Blood Culture - Final Blood - Venous - Lab Draw Med Orders - Current: Current Medications Acetaminophen (Tylenol) 650 mg PO Q4H PRN PRN Reason: Pain (mild 1-3) Last Admin: 01/24/20 11:22 Dose: 650 mg Documented by: Albuterol (Proventil Neb Soln) 2.5 mg NEB ONETIME PRN PRN Reason: Wheezing Atropine Sulfate (Atropine 0.1 Mg/Ml) 0.5 mg IVPUSH ASDIRECTED PRN PRN Reason: Hypo-perfusion Atropine Sulfate (Atropine 0.1 Mg/Ml) 1 mg IVPUSH ASDIRECTED PRN PRN Reason: Hypo-Perfusion Calcium Chloride (Calcium Chloride 10%) 1 gm IVPUSH ONETIME PRN PRN Reason: MBT Dextrose/Water (Dextrose 50% In Water) 50 ml IVPUSH ASDIRECTED PRN PRN Reason: Hypoglycemia Diphenhydramine HCl (Benadryl) 25 mg IVPUSH Q6H PRN PRN Reason: Hives Epinephrine HCl (Epinephrine 1:10,000) 1 mg IVPUSH ASDIRECTED PRN PRN Reason: ACLS Guidelines Fentanyl (Sublimaze) 50 - 100 mcg IVPUSH Q5M PRN PRN Reason: Pain Phenylephrine HCl 10 mg/ (Sodium Chloride) 100 mls @ 24 mls/hr IV TITRATE [place]; Protocol Last Titration: 01/24/20 06:40 Dose: 6 mcg/min, 3.6 mls/hr Documented by: Lactated Ringer's (Ringers, Lactated) 1,000 mls @ 150 mls/hr IV ASDIRECTED [place] Last Admin: 01/24/20 11:21 Dose: 150 mls/hr Documented by: Norepinephrine Bitartrate (Norepinephr-0.9% Nacl 4 Mg/250) 4 mg in 250 mls @ 7.5 mls/hr IV TITRATE [place]; Protocol Last Titration: 01/24/20 10:57 Dose: 2 mcg/min, 7.5 mls/hr Documented by: Piperacillin Sod/Tazobactam (Sod 3.375 gm/ Sodium Chloride) 50 mls @ 100 mls/hr IV Q6H [place] Last Infusion: 01/24/20 09:25 Dose: 50 mls/hr Documented by: Vancomycin HCl 1.25 gm/ Sodium (Chloride) 250 mls @ 166.667 mls/hr IV Q8H [place] Last Infusion: 01/24/20 10:53 Dose: 100 mls/hr Documented by: Magnesium Sulfate 1 gm/ Sodium (Chloride) 52 mls @ 104 mls/hr IV ONETIME ONE Stop: 01/24/20 12:29 Ibuprofen (Motrin) 600 mg PO Q6H PRN PRN Reason: Pain (mild 1-3) Methylprednisolone (Medrol) 0 mg PO TITRATE [place]; Protocol Last Admin: 01/24/20 09:20 Dose: 2 tab Documented by: Morphine Sulfate (Morphine) 4 mg IVPUSH Q2H PRN PRN Reason: Pain (severe 7-10) Naloxone HCl (Narcan) 0.1 mg IVPUSH ASDIRECTED PRN PRN Reason: Respiratory Depression Ondansetron HCl (Zofran) 4 mg IVPUSH Q6H PRN PRN Reason: Nausea/Vomiting Promethazine HCl (Phenergan) 25 mg IM Q6H PRN PRN Reason: Nausea/Vomiting Vancomycin HCl (Pharmacy To Dose - Vancomycin) 1 dose .XX ASDIRECTED [facility] Discontinued Medications Acetaminophen (Tylenol) 650 mg PO Q4H PRN PRN Reason: Pain (mild 1-3) Calcium Gluconate (Calcium Gluconate) 1 gm IVPUSH ONETIME ONE Stop: 01/24/20 02:30 Last Admin: 01/24/20 03:13 Dose: Not Given Documented by: Calcium Gluconate (Calcium Gluconate) 1 gm IVPUSH ONETIME ONE Stop: 01/24/20 11:30 Last Admin: 01/24/20 12:06 Dose: 1 gm Documented by: Cefazolin Sodium (Ancef) Confirm Administered Dose 2 gm .ROUTE .STK-MED ONE Stop: 01/24/20 02:50 Diphenhydramine HCl (Benadryl) 50 mg IVPUSH ONETIME ONE Stop: 01/24/20 04:53 Last Admin: 01/24/20 04:52 Dose: 50 mg Documented by: Diphenhydramine HCl (Benadryl) Confirm Administered Dose 50 mg .ROUTE .STK-MED ONE Stop: 01/24/20 04:53 Last Admin: 01/24/20 06:00 Dose: Not Given Documented by: Ephedrine Sulfate (Ephedrine Sulfate) Confirm Administered Dose 50 mg .ROUTE .STK-MED ONE Stop: 01/24/20 02:50 Etomidate (Amidate) Confirm Administered Dose 40 mg IVPUSH .STK-MED ONE Stop: 01/24/20 02:50 Fentanyl (Sublimaze) Confirm Administered Dose 250 mcg .ROUTE .STK-MED ONE Stop: 01/24/20 02:50 Fentanyl (Sublimaze) Confirm Administered Dose 100 mcg .ROUTE .STK-MED ONE Stop: 01/24/20 03:08 Last Admin: 01/24/20 06:02 Dose: Not Given Documented by: Tranexamic Acid 1,000 mg/ (Sodium Chloride) 110 mls @ 600 mls/hr IV ONETIME ONE Stop: 01/24/20 02:39 Last Admin: 01/24/20 03:02 Dose: 600 mls/hr Documented by: Sodium Chloride (Normal Saline) Confirm Administered Dose 20 mls @ as directed .ROUTE .STK-MED ONE Stop: 01/24/20 02:50 Tranexamic Acid 1,000 mg/ (Sodium Chloride) 110 mls @ 600 mls/hr IV ONETIME ONE Stop: 01/24/20 03:15 Last Admin: 01/24/20 03:10 Dose: 600 mls/hr Documented by: Magnesium Sulfate 2 gm/ Premix 50 mls @ 50 mls/hr IV ONETIME ONE Stop: 01/24/20 05:38 Last Admin: 01/24/20 06:13 Dose: 50 mls/hr Documented by: Magnesium Sulfate (Magnesium Sulfate In Water Premix) Confirm Administered Dose 50 mls @ as directed .ROUTE .STK-MED ONE Stop: 01/24/20 06:14 Last Admin: 01/24/20 07:25 Dose: Not Given Documented by: Lactated Ringer's (Ringers, Lactated) 1,000 mls @ 999 mls/hr IV .BOLUS ONE Stop: 01/24/20 08:27 Last Admin: 01/24/20 07:30 Dose: 999 mls/hr Documented by: Methylprednisolone (Medrol) 0 mg PO ASDIRECTED [facility]; Protocol Midazolam HCl (Versed 1 Mg/Ml) Confirm Administered Dose 2 mg .ROUTE .STK-MED ONE Stop: 01/24/20 02:50 Tranexamic Acid (Cyklokapron) Confirm Administered Dose 1,000 mg .ROUTE .STK-MED ONE Stop: 01/24/20 02:37 Last Admin: 01/24/20 06:01 Dose: Not Given Documented by: - Exam General: Alert, Oriented, Cooperative Lungs: Clear to Auscultation, Normal Respiratory Effort Cardiovascular: Regular Rate, Regular Rhythm GI/Abdominal Exam: Normal Bowel Sounds, Soft. No: Guarding, Rigid, Rebound Extremities: Pedal Edema (trace), Pallor Skin: Dry, Intact, Cool Neurological: Normal Speech, Normal Tone, Reflexes Equal Bilateral Psy/Mental Status: Alert Sepsis Event Note - Evaluation Sepsis Screening Result: No Definite Risk - Focused Exam Vital Signs: Vital Signs Temp Temp Pulse Resp BP BP BP 01/24/20 11:00 13 106/57 L 01/24/20 10:00 13 99/55 L 01/24/20 09:00 10 L 104/55 L 01/24/20 08:00 36.8 C 17 104/55 L 01/24/20 07:00 15 01/24/20 06:00 37.3 C 15 01/24/20 05:51 37.3 C 15 100/57 L 01/24/20 05:37 37.3 C 14 103/54 L 01/24/20 05:00 37.3 C 13 01/24/20 04:39 01/24/20 04:30 77 15 01/24/20 04:25 86 15 01/24/20 04:15 87 15 01/24/20 04:10 90 16 01/24/20 04:05 74 15 01/24/20 04:00 63 15 01/24/20 03:55 61 15 108/57 L 01/24/20 03:50 66 15 103/58 L 01/24/20 03:46 36.4 C 73 16 110/77 01/24/20 02:50 118 H 22 H 206/186 H BP Pulse Ox 01/24/20 11:00 95/58 L 99 01/24/20 10:00 94/59 L 98 01/24/20 09:00 96/48 L 99 01/24/20 08:00 86/55 L 100 01/24/20 07:00 86/46 L 99 01/24/20 06:00 91/47 L 99 01/24/20 05:51 01/24/20 05:37 01/24/20 05:00 100 01/24/20 04:39 99 01/24/20 04:30 96/60 100 01/24/20 04:25 106/56 L 100 01/24/20 04:15 104/63 01/24/20 04:10 88/55 L 100 01/24/20 04:05 93/56 L 100 01/24/20 04:00 103/58 L 100 01/24/20 03:55 100 01/24/20 03:50 100 01/24/20 03:46 100 01/24/20 02:50 96 - Problem List & Annotations (1) Incomplete with shock SNOMED Code(s): 337775049, [id number] Code(s): O03.31 - SHOCK FOLLOWING INCOMPLETE SPONTANEOUS Status: Acute Current Visit: No - Problem List Review Problem List Initiated/Reviewed/Updated: Yes - My Orders Last 24 Hours: Active Orders 24 hr Category Date Time Status Patient Status [ADT] Routine ADT 01/24/20 04:37 Active Antiembolic Devices [RC] PER UNIT ROUTINE Care 01/24/20 04:38 Active Intake and Output [RC] Q4H Care 01/24/20 04:39 Active Notify Provider Intake and Out [RC] Q12H Care 01/24/20 04:37 Active Notify Provider Vital Signs [RC] Q12H Care 01/24/20 04:37 Active Oxygen Therapy [RC] ASDIRECTED Care 01/24/20 04:37 Active Pulse Oximetry [RC] PER UNIT ROUTINE Care 01/24/20 04:39 Active RT Incentive Spirometry [RC] Q2HWA Care 01/24/20 04:37 Active Up With Assistance [RC] PER UNIT ROUTINE Care 01/24/20 04:37 Active Urinary Catheter Removal [RC] Per Unit Routine Care 01/24/20 04:37 Active Vital Signs [RC] Q1H Care 01/24/20 04:37 Active Regular Diet [DIET] Diet 01/24/20 Breakfast Active CBC W/O DIFF,HEMOGRAM [HEME] Routine Lab 01/24/20 18:00 Ordered CMP [COMPREHENSIVE METABOLIC PN,CMP] [CHEM] Routine Lab 01/24/20 18:00 Ordered CRYOPRECIPITATE [BBK] Stat Lab 01/24/20 03:10 Results CULTURE BLOOD [BC] Stat Lab 01/24/20 07:45 Received CULTURE BLOOD [BC] Stat Lab 01/24/20 07:55 Results FIBRINOGEN [COAG] Routine Lab 01/24/20 18:00 Ordered FRESH FROZEN PLASMA [BBK] Stat Lab 01/24/20 03:10 Results MAGNESIUM [CHEM] Routine Lab 01/24/20 18:00 Ordered RED BLOOD CELLS LP [BBK] Stat Lab 01/24/20 03:10 Results RH IMMUNE GLOBULIN [BBK] Routine Lab 01/24/20 05:15 Results RHIG WORKUP, [BBK] Routine Lab 01/24/20 05:15 Results TYPE AND SCREEN [BBK] Stat Lab 01/24/20 03:10 Results VANCOMYCIN TROUGH [CHEM] Timed Lab 01/25/20 09:00 Ordered Acetaminophen [TylenoL] Med 01/24/20 11:16 Active 650 mg PO Q4H PRN Albuterol [Proventil Neb Soln] Med 01/24/20 03:36 Active 2.5 mg NEB ONETIME PRN Atropine [Atropine 0.1 MG/ML] Med 01/24/20 03:36 Active 0.5 mg IVPUSH ASDIRECTED PRN Atropine [Atropine 0.1 MG/ML] Med 01/24/20 03:36 Active 1 mg IVPUSH ASDIRECTED PRN Calcium Chloride [Calcium Chloride 10%] Med 01/24/20 03:06 Active 1 gm IVPUSH ONETIME PRN Dextrose 50% in Water Med 01/24/20 03:36 Active 50 ml IVPUSH ASDIRECTED PRN EPINEPHrine [EPINEPHrine 1:10,000] Med 01/24/20 03:36 Active 1 mg IVPUSH ASDIRECTED PRN Ibuprofen [Motrin] Med 01/24/20 04:37 Active 600 mg PO Q6H PRN Lactated Ringers [Ringers, Lactated] 1,000 ml Med 01/24/20 04:45 Active IV ASDIRECTED Magnesium Sulfate [Magnesium Sulfate 50%] 1 gm Med 01/24/20 12:00 Active Sodium Chloride 0.9% [Normal Saline] 50 ml IV ONETIME Morphine Med 01/24/20 04:37 Active 4 mg IVPUSH Q2H PRN Naloxone [Narcan] Med 01/24/20 03:36 Active 0.1 mg IVPUSH ASDIRECTED PRN Norepinephrine Bit/0.9 % NaCl [Norepinephr-0.9% NaCl 4 Med 01/24/20 07:30 Active mg/250] 4 mg in 250 ml IV TITRATE Ondansetron [Zofran] Med 01/24/20 04:37 Active 4 mg IVPUSH Q6H PRN Pharmacy to Dose - Vancomycin Med 01/24/20 07:30 Active 1 dose .XX ASDIRECTED Phenylephrine [Sandor-Synephrine] 10 mg Med 01/24/20 04:15 Active Sodium Chloride 0.9% [Normal Saline] 99 ml IV TITRATE Piperacillin/Tazobactam [Piperacil-Tazobact] 3.375 gm Med 01/24/20 07:30 Active Sodium Chloride 0.9% [Normal Saline] 50 ml IV Q6H Promethazine [Phenergan] Med 01/24/20 04:37 Active 25 mg IM Q6H PRN Vancomycin 1.25 gm Med 01/24/20 09:30 Active Sodium Chloride 0.9% [Normal Saline (AdvBag)] 250 ml IV Q8H diphenhydrAMINE [Benadryl] Med 01/24/20 05:09 Active 25 mg IVPUSH Q6H PRN fentaNYL [Sublimaze] Med 01/24/20 03:36 Active 50 - 100 mcg IVPUSH Q5M PRN methylPREDNISolone [Medrol] Med 01/24/20 09:00 Active 0 mg PO TITRATE Blood Culture x2 Reflex Set [OM.PC] Stat Ot 01/24/20 07:27 Ordered Peripheral IV Discontinue [OM.PC] Routine Ot 01/24/20 04:37 Ordered Sequential Compression Device [OM.PC] Per Unit Routine Ot 01/24/20 04:37 Ordered Transfuse Cryoprecipitate [COMM] Stat Ot 01/24/20 04:31 Ordered Transfuse Fresh Frozen Plasma [COMM] Stat Ot 01/24/20 03:04 Ordered Resuscitation Status Routine Resus Stat 01/24/20 04:37 Ordered Medication Orders Acetaminophen (Tylenol) 650 mg PO Q4H PRN PRN Reason: Pain (mild 1-3) Last Admin: 01/24/20 11:22 Dose: 650 mg Documented by: NICKOLAS Albuterol (Proventil Neb Soln) 2.5 mg NEB ONETIME PRN PRN Reason: Wheezing Atropine Sulfate (Atropine 0.1 Mg/Ml) 0.5 mg IVPUSH ASDIRECTED PRN PRN Reason: Hypo-perfusion Atropine Sulfate (Atropine 0.1 Mg/Ml) 1 mg IVPUSH ASDIRECTED PRN PRN Reason: Hypo-Perfusion Calcium Chloride (Calcium Chloride 10%) 1 gm IVPUSH ONETIME PRN PRN Reason: MBT Dextrose/Water (Dextrose 50% In Water) 50 ml IVPUSH ASDIRECTED PRN PRN Reason: Hypoglycemia Diphenhydramine HCl (Benadryl) 25 mg IVPUSH Q6H PRN PRN Reason: Hives Epinephrine HCl (Epinephrine 1:10,000) 1 mg IVPUSH ASDIRECTED PRN PRN Reason: ACLS Guidelines Fentanyl (Sublimaze) 50 - 100 mcg IVPUSH Q5M PRN PRN Reason: Pain Phenylephrine HCl 10 mg/ (Sodium Chloride) 100 mls @ 24 mls/hr IV TITRATE [place]; Protocol Last Titration: 01/24/20 06:40 Dose: 6 mcg/min, 3.6 mls/hr Documented by: Titration: 01/24/20 06:10 Dose: 5 mcg/min, 3 mls/hr Documented by: Admin: 01/24/20 04:15 Dose: 4 mcg/min, 2.4 mls/hr Documented by: ANSHUL Lactated Ringer's (Ringers, Lactated) 1,000 mls @ 150 mls/hr IV ASDIRECTED [place] Last Admin: 01/24/20 11:21 Dose: 150 mls/hr Documented by: Infusion: 01/24/20 10:56 Dose: 150 mls/hr Documented by: Admin: 01/24/20 04:15 Dose: 150 mls/hr Documented by: ANSHUL Norepinephrine Bitartrate (Norepinephr-0.9% Nacl 4 Mg/250) 4 mg in 250 mls @ 7.5 mls/hr IV TITRATE [place]; Protocol Last Titration: 01/24/20 10:57 Dose: 2 mcg/min, 7.5 mls/hr Documented by: Titration: 01/24/20 09:03 Dose: 3 mcg/min, 11.25 mls/hr Documented by: Admin: 01/24/20 08:14 Dose: 2 mcg/min, 7.5 mls/hr Documented by: NICKOLAS Piperacillin Sod/Tazobactam (Sod 3.375 gm/ Sodium Chloride) 50 mls @ 100 mls/hr IV Q6H [place] Last Infusion: 01/24/20 09:25 Dose: 50 mls/hr Documented by: Infusion: 01/24/20 08:55 Dose: 30 mls/hr Documented by: Admin: 01/24/20 08:39 Dose: 100 mls/hr Documented by: NICKOLAS Vancomycin HCl 1.25 gm/ Sodium (Chloride) 250 mls @ 166.667 mls/hr IV Q8H [facility] Last Infusion: 01/24/20 10:53 Dose: 100 mls/hr Documented by: Admin: 01/24/20 10:13 Dose: 50 mls/hr Documented by: NICKOLAS Magnesium Sulfate 1 gm/ Sodium (Chloride) 52 mls @ 104 mls/hr IV ONETIME ONE Stop: 01/24/20 12:29 Ibuprofen (Motrin) 600 mg PO Q6H PRN PRN Reason: Pain (mild 1-3) Methylprednisolone (Medrol) 0 mg PO TITRATE [facility]; Protocol Last Admin: 01/24/20 09:20 Dose: 2 tab Documented by: NICKOLAS Morphine Sulfate (Morphine) 4 mg IVPUSH Q2H PRN PRN Reason: Pain (severe 7-10) Naloxone HCl (Narcan) 0.1 mg IVPUSH ASDIRECTED PRN PRN Reason: Respiratory Depression Ondansetron HCl (Zofran) 4 mg IVPUSH Q6H PRN PRN Reason: Nausea/Vomiting Promethazine HCl (Phenergan) 25 mg IM Q6H PRN PRN Reason: Nausea/Vomiting Vancomycin HCl (Pharmacy To Dose - Vancomycin) 1 dose .XX ASDIRECTED [facility] - Assessment Assessment (Free Text/Narrative):: POD s/p suction D&C, for SAB with hemorrhage/hypovolemic shock - Plan Plan (Free Text/Narrative):: Labs reviewed. Lactate normalized. Hemoglobin 10s. Platelets 106. Fibrinogen slightly low, but improved. Calcium and magnesium a bit low yet. Will supplement. Blood cultures with prophylactic antibiotics started by EICU (zosyn, vancomycin)--does not seem to be reacting to these. Receive rhogam today Had episode of hypotension this morning around 7:30 am, thus given iv fluid bolus (LR) and started norepienephrine drip (2mcg/min)--stopped phenylephrine at that time. Has good urine output. Blood pressures are now remaining stable. Pulse is normal. Will monitor closely today. Repeat labs this evening unless interval changes occur. Explained plan of care to , he is agreeable and comfortable with it. SO far for blood products has received 7U PRBCs en route, 2 U FFP and 1U cryoprecipitate. Receiving rhogam today.
[2020-01-24 18:27] LABS: BLOOD UREA NITROGEN,BUN 8 mg/dL (7.0-18.0); CARBON DIOXIDE,CO2 21.9 mmol/L (21.0-32.0); CHLORIDE,CL 112 mmol/L (98-107); GLUCOSE RANDOM 94 mg/dL (74-106); POTASSIUM,K 3.9 mmol/L (3.5-5.1); SODIUM,NA 142 mmol/L (136-145)
--- NOTE | 2020-01-24 19:29 | PCM.SN.2 ---
- Free Text/Narrative Note: Pt improving. VSS this evening; off all pressors currently. Hgb/Plt count stabilized. Fibrinogen Improving. Good urine output. Per nursing, pt is feeling better. Will see in the AM. Late entry: 01/24/20509 - At pt bedside in ICU, present states she "cannot breathe", hives noted to lower extremities. Benadryl 50 mg IV x 1 ordered by me and given by nursing. Dr Donohue notified and at the bedside. Unsure if this is related to betadine prep or clindamycin at this time. Will continue to monitor.
[2020-01-24] MEDS ORDERED: Magnesium Sulfate/Water 50 ML IV ONE (20:00)
--- NOTE | 2020-01-24 20:23 | PCM.SN.2 ---
- Free Text/Narrative Note: Is awake and alert--had a long discussion about course of events. She denies pain, vaginal bleeding is minimal. She is maintaining her BP on her own, drip stopped around 3 pm. Currrently just receiving iv fluids and antibiotics (blood culture pending). She is tolerating a regular diet. Labs reviewed. Fibrinogen normalized. Platelets and hemoglobin stable. Calcium and magnesium still mildly low, supplement again this evening. Urine output remains very good. She would like to trial removing catheter this evening if feels well attempting ambulation in a bit. If remains stable tonight, plan to transfer to floor in the morning. Would await preliminary blood culture report prior to discontinuation of antibiotics. Labs ordered for the morning. All questions answered. Patient and her agree to plan of care. Dr Barragan will assume care in the morning.
[2020-01-24] MEDS ORDERED: Lactated Ringers 1,000 ML IV SCH (20:30)
[2020-01-25] MEDS: Piperacillin/Tazobactam 3.375 GM in Sodium Chloride 0.9% 50 ML IV SCH ×4 (00:44→20:19)
[2020-01-25] MEDS: Acetaminophen 325 MG Tab PO PRN ×2 (05:37→10:15)
[2020-01-25] MEDS ORDERED: Benzocaine/Cetylpyridinium/Menthol Lozenge MUCMEM PRN (05:45)
[2020-01-25 06:13] LABS: BLOOD UREA NITROGEN,BUN 6 mg/dL (7.0-18.0); CARBON DIOXIDE,CO2 23.5 mmol/L (21.0-32.0); CHLORIDE,CL 110 mmol/L (98-107); GLUCOSE RANDOM 109 mg/dL (74-106); POTASSIUM,K 3.7 mmol/L (3.5-5.1); SODIUM,NA 142 mmol/L (136-145)
--- NOTE | 2020-01-25 07:04 | PCM.PREANE ---
Preanesthetic Assessment - Anesthesia/Transfusion/Family Hx Anesthesia History: Prior Anesthesia Without Reaction Family History of Anesthesia Reaction: No Intubation History: Unknown - Review of Systems General: No Symptoms, Other (anxious) Pulmonary: No Symptoms Cardiovascular: Other (borderline hypotensive) Gastrointestinal: Abdominal Pain Neurological: No Symptoms Other: Reports: None - Physical Assessment Vital Signs: Last Vital Signs Temp 36.8 C 01/25/20 04:00 Pulse 77 01/24/20 04:30 Resp 16 01/25/20 06:00 BP 108/50 L 01/25/20 06:00 Pulse Ox 97 01/25/20 06:00 Height: 5 ft 9 in Weight: 89.981 kg ASA Class: 2E Mental Status: Other (anxious) Airway Class: Mallampati = 1 Dentition: Reports: Normal Dentition Thyro-Mental Finger Breadths: 3 Mouth Opening Finger Breadths: 3 ROM/Head Extension: Full Lungs: Normal Respiratory Effort Cardiovascular: Regular Rate, Regular Rhythm, Other (due to emergency precordial auscultation not done) - Lab Values: Laboratory Last Values WBC 7.70 K/uL (4.0-11.0) 01/25/20 05:27 RBC 3.14 M/uL (4.30-5.90) L 01/25/20 05:27 Hgb 9.4 g/dL (12.0-16.0) L 01/25/20 05:27 Hct 27.2 % (36.0-46.0) L 01/25/20 05:27 MCV 86.6 fL (80.0-98.0) 01/25/20 05:27 MCH 29.9 pg (27.0-32.0) 01/25/20 05:27 MCHC 34.6 g/dL (31.0-37.0) 01/25/20 05:27 RDW Std Deviation 40.9 fl (28.0-62.0) 01/25/20 05:27 RDW Coeff of Gabriel 13 % (11.0-15.0) 01/25/20 05:27 Plt Count 104 K/uL (150-400) L 01/25/20 05:27 MPV 11.30 fL (7.40-12.00) 01/25/20 05:27 Neut % (Auto) 82.2 % (48.0-80.0) H 01/25/20 05:27 Lymph % (Auto) 13.0 % (16.0-40.0) L 01/25/20 05:27 [place] % (Auto) 4.7 % (0.0-15.0) 01/25/20 05:27 Eos % (Auto) 0.0 % (0.0-7.0) 01/25/20 05:27 Baso % (Auto) 0.1 % (0.0-1.5) 01/25/20 05:27 Neut # (Auto) 6.3 K/uL (1.4-5.7) H 01/25/20 05:27 Lymph # (Auto) 1.0 K/uL (0.6-2.4) 01/25/20 05:27 [place] # (Auto) 0.4 K/uL (0.0-0.8) 01/25/20 05:27 Eos # (Auto) 0.0 K/uL (0.0-0.7) 01/25/20 05:27 Baso # (Auto) 0.0 K/uL (0.0-0.1) 01/25/20 05:27 INR 1.17 01/24/20 03:10 APTT 17.9 SEC (18.6-31.3) L 01/24/20 03:10 Fibrinogen 244 mg/dL (215-411) 01/24/20 18:07 ABG pH 7.409 (7.35-7.45) 01/24/20 07:55 ABG pCO2 27 mmHG (35-45) L 01/24/20 07:55 ABG pO2 120 mmHG (75-100) H 01/24/20 07:55 ABG HCO3 17 mEq/L (22-26) L 01/24/20 07:55 ABG Total CO2 15.7 01/24/20 07:55 ABG Base Excess -6.7 (-2.0-2.0) L 01/24/20 07:55 Lactate 1.7 mmol/L (0.20-2.00) 01/24/20 07:55 Sodium 142 mmol/L (136-145) 01/25/20 05:27 Potassium 3.7 mmol/L (3.5-5.1) 01/25/20 05:27 Chloride 110 mmol/L (98-107) H 01/25/20 05:27 Carbon Dioxide 23.5 mmol/L (21.0-32.0) 01/25/20 05:27 BUN 6 mg/dL (7.0-18.0) L 01/25/20 05:27 Creatinine 0.7 mg/dL (0.6-1.0) 01/25/20 05:27 Est Cr Clr Drug Dosing 120.58 mL/min 01/25/20 05:27 Estimated GFR (MDRD) > 60.0 ml/min 01/25/20 05:27 Glucose 109 mg/dL (74-106) H 01/25/20 05:27 Calcium 7.5 mg/dL (8.5-10.1) L 01/25/20 05:27 Magnesium 1.8 mg/dL (1.8-2.4) 01/25/20 05:27 Total Bilirubin 1.6 mg/dL (0.2-1.0) H 01/25/20 05:27 AST 18 IU/L (15-37) 01/25/20 05:27 ALT 24 IU/L (14-63) 01/25/20 05:27 Alkaline Phosphatase 37 U/L (46-116) L 01/25/20 05:27 Total Protein 5.0 g/dL (6.4-8.2) L 01/25/20 05:27 Albumin 2.9 g/dL (3.4-5.0) L 01/25/20 05:27 Globulin 2.1 g/dL (2.6-4.0) L 01/25/20 05:27 Albumin/Globulin Ratio 1.4 (0.9-1.6) 01/25/20 05:27 COVID-19 (CRIST[facility]BAL) NEGATIVE (NEGATIVE) 01/24/20 03:00 Blood Type Cancelled 01/24/20 05:15 Antibody Screen Cancelled 01/24/20 05:15 Screen Cancelled 01/24/20 05:15 RhIG Candidate? Cancelled 01/24/20 05:15 Rhogam Indicated Cancelled 01/24/20 05:15 Crossmatch See Detail 01/24/20 03:10 Crossmatch See Detail 01/24/20 03:10 Tx Rx Implicated Unit 1 [id number] 01/24/20 05:15 Unit 1 Component PF-24/FFP 01/24/20 05:15 Pre-Trans Blood Type A NEGATIVE 01/24/20 05:15 Pre-Trans Vis Hemolysis NEGATIVE 01/24/20 05:15 Pre-Trans Icterus 1+ 01/24/20 05:15 Post-Trans Blood Type A NEGATIVE 01/24/20 05:15 Post-Tx Visible Hemolys NEGATIVE 01/24/20 05:15 Post-Trans Icterus 1+ 01/24/20 05:15 Post-Trans TOM Poly NEGATIVE 01/24/20 05:15 Reaction Interpretation NON-HEM TRANSF RX 01/24/20 05:15 - Allergies Allergies/Adverse Reactions: Allergies Allergy/AdvReac Type Severity Reaction Status Date / Time cephalexin Allergy Severe Arrhythmias Verified 01/24/20 04:38 clindamycin Allergy Severe Shortness Verified 01/24/20 06:28 of Breath Latex, Natural Rubber Allergy Intermediate Itching Verified 01/24/20 04:38 - Blood Blood Available: No - Anesthesia Plan Pre-Op Medication Ordered: None - Acknowledgements Anesthesia Type Planned: General Anesthesia Pt an Appropriate Candidate for the Planned Anesthesia: Yes Alternatives and Risks of Anesthesia Discussed w Pt/Guardian: Yes Pt/Guardian Understands and Agrees with Anesthesia Plan: Yes PreAnesthesia Questionnaire - Past Health History Medical/Surgical History: Denies Medical/Surgical History CLEANERS History: Reports: Other (See Below) (missed , severe uterine bleeding- received 6 units of blood in local hospital. She was of epi drip which was discontinued before arrivel. Parient borderline hypotensive, c/o lower abdomial pain.) Endocrine/Metabolic History: Reports: Hypothyroidism - Past Surgical History HEENT Surgical History: Reports: Myringotomy w Tube(s) Female Surgical History: Reports: Section - SUBSTANCE USE Smoking Status *Q: Current Every Day Smoker Recreational Drug Use History: No - HOME MEDS Home Medications: Home Meds Levothyroxine Sodium [Synthroid] 75 mcg PO ACBREAKFAST 01/24/20 [History] Liothyronine [Cytomel] 5 mcg PO ACBREAKFAST 01/24/20 [History] nitrofurantoin macrocrystaL [Nitrofurantoin] 100 mg PO 01/24/20 [History] - CURRENT (IN HOUSE) MEDS Current Meds: Current Medications Acetaminophen (Tylenol) 650 mg PO Q4H PRN PRN Reason: Pain (mild 1-3) Last Admin: 01/25/20 05:37 Dose: 650 mg Documented by: Albuterol (Proventil Neb Soln) 2.5 mg NEB ONETIME PRN PRN Reason: Wheezing Atropine Sulfate (Atropine 0.1 Mg/Ml) 0.5 mg IVPUSH ASDIRECTED PRN PRN Reason: Hypo-perfusion Atropine Sulfate (Atropine 0.1 Mg/Ml) 1 mg IVPUSH ASDIRECTED PRN PRN Reason: Hypo-Perfusion Benzocaine/Menthol (Cepacol Sore Throat) 1 lozenge MUCMEM Q2H PRN PRN Reason: Other Last Admin: 01/25/20 05:55 Dose: 1 lozenge Documented by: Calcium Chloride (Calcium Chloride 10%) 1 gm IVPUSH ONETIME PRN PRN Reason: MBT Dextrose/Water (Dextrose 50% In Water) 50 ml IVPUSH ASDIRECTED PRN PRN Reason: Hypoglycemia Diphenhydramine HCl (Benadryl) 25 mg IVPUSH Q6H PRN PRN Reason: Hives Epinephrine HCl (Epinephrine 1:10,000) 1 mg IVPUSH ASDIRECTED PRN PRN Reason: ACLS Guidelines Fentanyl (Sublimaze) 50 - 100 mcg IVPUSH Q5M PRN PRN Reason: Pain Norepinephrine Bitartrate (Norepinephr-0.9% Nacl 4 Mg/250) 4 mg in 250 mls @ 7.5 mls/hr IV TITRATE [facility]; Protocol Last Titration: 01/24/20 15:18 Dose: 0 mcg/min, 0 mls/hr Documented by: Piperacillin Sod/Tazobactam (Sod 3.375 gm/ Sodium Chloride) 50 mls @ 100 mls/hr IV Q6H [facility] Last Admin: 01/25/20 00:44 Dose: 50 mls/hr Documented by: Vancomycin HCl 1.25 gm/ Sodium (Chloride) 250 mls @ 166.667 mls/hr IV Q8H [facility] Last Admin: 01/25/20 01:20 Dose: 166 mls/hr Documented by: Lactated Ringer's (Ringers, Lactated) 1,000 mls @ 125 mls/hr IV ASDIRECTED [facility] Last Admin: 01/25/20 04:15 Dose: 125 mls/hr Documented by: Ibuprofen (Motrin) 600 mg PO Q6H PRN PRN Reason: Pain (mild 1-3) Levothyroxine Sodium (Levothyroxine) 75 mcg PO ACBREAKFAST [facility] Methylprednisolone (Medrol) 0 mg PO TITRATE [facility]; Protocol Last Admin: 01/24/20 21:39 Dose: 2 tab Documented by: Morphine Sulfate (Morphine) 4 mg IVPUSH Q2H PRN PRN Reason: Pain (severe 7-10) Naloxone HCl (Narcan) 0.1 mg IVPUSH ASDIRECTED PRN PRN Reason: Respiratory Depression Ondansetron HCl (Zofran) 4 mg IVPUSH Q6H PRN PRN Reason: Nausea/Vomiting Promethazine HCl (Phenergan) 25 mg IM Q6H PRN PRN Reason: Nausea/Vomiting Vancomycin HCl (Pharmacy To Dose - Vancomycin) 1 dose .XX ASDIRECTED [facility] Discontinued Medications Acetaminophen (Tylenol) 650 mg PO Q4H PRN PRN Reason: Pain (mild 1-3) Calcium Gluconate (Calcium Gluconate) 1 gm IVPUSH ONETIME ONE Stop: 01/24/20 02:30 Last Admin: 01/24/20 03:13 Dose: Not Given Documented by: Calcium Gluconate (Calcium Gluconate) 1 gm IVPUSH ONETIME ONE Stop: 01/24/20 11:30 Last Admin: 01/24/20 12:06 Dose: 1 gm Documented by: Calcium Gluconate (Calcium Gluconate) 1 gm IVPUSH ONETIME ONE Stop: 01/24/20 19:45 Last Admin: 01/24/20 20:27 Dose: 1 gm Documented by: Cefazolin Sodium (Ancef) Confirm Administered Dose 2 gm .ROUTE .STK-MED ONE Stop: 01/24/20 02:50 Diphenhydramine HCl (Benadryl) 50 mg IVPUSH ONETIME ONE Stop: 01/24/20 04:53 Last Admin: 01/24/20 04:52 Dose: 50 mg Documented by: Diphenhydramine HCl (Benadryl) Confirm Administered Dose 50 mg .ROUTE .STK-MED ONE Stop: 01/24/20 04:53 Last Admin: 01/24/20 06:00 Dose: Not Given Documented by: Ephedrine Sulfate (Ephedrine Sulfate) Confirm Administered Dose 50 mg .ROUTE .STK-MED ONE Stop: 01/24/20 02:50 Etomidate (Amidate) Confirm Administered Dose 40 mg IVPUSH .STK-MED ONE Stop: 01/24/20 02:50 Fentanyl (Sublimaze) Confirm Administered Dose 250 mcg .ROUTE .STK-MED ONE Stop: 01/24/20 02:50 Fentanyl (Sublimaze) Confirm Administered Dose 100 mcg .ROUTE .STK-MED ONE Stop: 01/24/20 03:08 Last Admin: 01/24/20 06:02 Dose: Not Given Documented by: Tranexamic Acid 1,000 mg/ (Sodium Chloride) 110 mls @ 600 mls/hr IV ONETIME ONE Stop: 01/24/20 02:39 Last Admin: 01/24/20 03:02 Dose: 600 mls/hr Documented by: Sodium Chloride (Normal Saline) Confirm Administered Dose 20 mls @ as directed .ROUTE .ST-MED ONE Stop: 01/24/20 02:50 Tranexamic Acid 1,000 mg/ (Sodium Chloride) 110 mls @ 600 mls/hr IV ONETIME ONE Stop: 01/24/20 03:15 Last Admin: 01/24/20 03:10 Dose: 600 mls/hr Documented by: Phenylephrine HCl 10 mg/ (Sodium Chloride) 100 mls @ 24 mls/hr IV TITRATE [facility]; Protocol Last Titration: 01/24/20 07:30 Dose: 0 mcg/min, 0 mls/hr Documented by: Magnesium Sulfate 2 gm/ Premix 50 mls @ 50 mls/hr IV ONETIME ONE Stop: 01/24/20 05:38 Last Admin: 01/24/20 06:13 Dose: 50 mls/hr Documented by: Lactated Ringer's (Ringers, Lactated) 1,000 mls @ 150 mls/hr IV ASDIRECTED [facility] Last Admin: 01/24/20 18:21 Dose: 150 mls/hr Documented by: Magnesium Sulfate (Magnesium Sulfate In Water Premix) Confirm Administered Dose 50 mls @ as directed .ROUTE .STK-MED ONE Stop: 01/24/20 06:14 Last Admin: 01/24/20 07:25 Dose: Not Given Documented by: Lactated Ringer's (Ringers, Lactated) 1,000 mls @ 999 mls/hr IV .BOLUS ONE Stop: 01/24/20 08:27 Last Admin: 01/24/20 07:30 Dose: 999 mls/hr Documented by: Magnesium Sulfate 1 gm/ Sodium (Chloride) 52 mls @ 104 mls/hr IV ONETIME ONE Stop: 01/24/20 12:29 Last Admin: 01/24/20 12:33 Dose: 104 mls/hr Documented by: Epinephrine HCl 1 mg/ Sodium (Chloride) 101 mls @ as directed IV .STK-MED ONE Stop: 01/24/20 03:11 Clindamycin Phosphate 900 mg/ (Premix) 50 mls @ as directed IV .STK-MED ONE Stop: 01/24/20 03:25 Magnesium Sulfate (Magnesium Sulfate In Water Premix) 50 mls @ 50 mls/hr IV ONETIME ONE Stop: 01/24/20 20:59 Last Admin: 01/24/20 20:44 Dose: 50 mls/hr Documented by: Magnesium Sulfate (Magnesium Sulfate 50%) 2 gm IV ONETIME ONE Stop: 01/24/20 19:45 Methylprednisolone (Medrol) 0 mg PO ASDIRECTED [facility]; Protocol Midazolam HCl (Versed 1 Mg/Ml) Confirm Administered Dose 2 mg .ROUTE .STK-MED ONE Stop: 01/24/20 02:50 Tranexamic Acid (Cyklokapron) Confirm Administered Dose 1,000 mg .ROUTE .STK-MED ONE Stop: 01/24/20 02:37 Last Admin: 01/24/20 06:01 Dose: Not Given Documented by:
--- NOTE | 2020-01-25 07:20 | PCM.SN.2 ---
- Free Text/Narrative Note: Hgb/Plt remain stable since surgical intervention. Fibrinogen normalized. VSS throughout NOC. Mg++ slowly inproving, Ca++ mildly low/stable. Good urine output. Pt has been off Vasopressors for 18 hrs. Strongly consider d/cing Rt femoral groin line due to infection risk and temporary catheter. Pt continues to complain of sore throat, possibly due to intubation; has been receiving cepacol PRN. Overall pt is doing very well.
--- NOTE | 2020-01-25 07:21 | PCM.POSTAN ---
POST ANESTHESIA ASSESSMENT - MENTAL STATUS Mental Status: Alert, Oriented - VITAL SIGNS Vital Signs: Last Vital Signs Temp 36.8 C 01/25/20 04:00 Pulse 77 01/24/20 04:30 Resp 16 01/25/20 07:00 BP 105/49 L 01/25/20 07:00 Pulse Ox 97 01/25/20 07:00 - RESPIRATORY Respiratory Status: Respiratory Rate WNL, Airway Patent, O2 Saturation Stable - CARDIOVASCULAR CV Status: Pulse Rate WNL, Blood Pressure Stable - GASTROINTESTINAL GI Status: No Symptoms - PAIN Pain Score: 0 - POST OP HYDRATION Hydration Status: Adequate & Stable - OBSERVATIONS Free Text/Narrative:: no anesthesia problems
--- NOTE | 2020-01-25 07:27 | PCM48HPAN ---
Post Anesthesia Note - EVALUATION WITHIN 48HRS OF ANESTHETIC Vital Signs in Normal Range: Yes Patient Participated in Evaluation: Yes Respiratory Function Stable: Yes Airway Patent: Yes Cardiovascular Function Stable: Yes Hydration Status Stable: Yes Pain Control Satisfactory: Yes Nausea and Vomiting Control Satisfactory: Yes Mental Status Recovered: Yes Vital Signs: Last Vital Signs Temp 36.8 C 01/25/20 04:00 Pulse 77 01/24/20 04:30 Resp 16 01/25/20 07:00 BP 105/49 L 01/25/20 07:00 Pulse Ox 97 01/25/20 07:00
[2020-01-25] MEDS: Levothyroxine 75 MCG Tab PO SCH ×2 (08:06→08:22)
[2020-01-25] MEDS: methylPREDNISolone 4 MG Tab 21 Tab/Dosepak PO SCH ×3 (08:08→21:16)
--- NOTE | 2020-01-25 08:19 | PCM.PN ---
- General Info Date of Service: 01/25/20 Admission Dx/Problem (Free Text): Admission Diagnosis/Problem Admission Diagnosis/Problem Hypovolemic shock Subjective Update: Patient sitting upright in bed this morning during rounds. Toro catheter removed last evening, with good urine output overnight. Ambulating and voiding without difficulty. Tolerating regular diet without nausea or vomiting. Denies fever/chills, headache, abdominal pain, vaginal bleeding or discharge. - Patient Data Vitals - Most Recent: Last Vital Signs Temp 97.9 F 01/25/20 08:15 Pulse 77 01/24/20 04:30 Resp 16 01/25/20 08:15 BP 107/49 L 01/25/20 08:15 Pulse Ox 96 01/25/20 08:15 Weight - Most Recent: 198 lb 6 oz I&O - Last 24 Hours: Intake & Output 01/24/20 01/25/20 01/25/20 22:59 06:59 14:59 Intake Total 2600 2529 Output Total 3500 2300 Balance -900 229 Lab Results Last 24 Hours: Laboratory Results - last 24 hr 01/24/20 01/24/20 01/24/20 Range/Units 03:10 03:10 05:15 WBC (4.0-11.0) K/uL RBC (4.30-5.90) M/uL Hgb (12.0-16.0) g/dL Hct (36.0-46.0) % MCV (80.0-98.0) fL MCH (27.0-32.0) pg MCHC (31.0-37.0) g/dL RDW Std Deviation (28.0-62.0) fl RDW Coeff of Gabriel (11.0-15.0) % Plt Count (150-400) K/uL MPV (7.40-12.00) fL Neut % (Auto) (48.0-80.0) % Lymph % (Auto) (16.0-40.0) % Love % (Auto) (0.0-15.0) % Eos % (Auto) (0.0-7.0) % Baso % (Auto) (0.0-1.5) % Neut # (Auto) (1.4-5.7) K/uL Lymph # (Auto) (0.6-2.4) K/uL Love # (Auto) (0.0-0.8) K/uL Eos # (Auto) (0.0-0.7) K/uL Baso # (Auto) (0.0-0.1) K/uL Fibrinogen (215-411) mg/dL Sodium (136-145) mmol/L Potassium (3.5-5.1) mmol/L Chloride (98-107) mmol/L Carbon Dioxide (21.0-32.0) mmol/L BUN (7.0-18.0) mg/dL Creatinine (0.6-1.0) mg/dL Est Cr Clr Drug Dosing mL/min Estimated GFR (MDRD) ml/min Glucose (74-106) mg/dL Calcium (8.5-10.1) mg/dL Magnesium (1.8-2.4) mg/dL Total Bilirubin (0.2-1.0) mg/dL AST (15-37) IU/L ALT (14-63) IU/L Alkaline Phosphatase (46-116) U/L Total Protein (6.4-8.2) g/dL Albumin (3.4-5.0) g/dL Globulin (2.6-4.0) g/dL Albumin/Globulin Ratio (0.9-1.6) Blood Type Cancelled Antibody Screen Cancelled NEGATIVE Screen RhIG Candidate? Rhogam Indicated Crossmatch See Detail Tx Rx Implicated Unit 1 [id number] Unit 1 Component PF-24/FFP Pre-Trans Blood Type A NEGATIVE Pre-Trans Vis Hemolysis NEGATIVE Pre-Trans Icterus 1+ Post-Trans Blood Type A NEGATIVE Post-Tx Visible Hemolys NEGATIVE Post-Trans Icterus 1+ Post-Trans TOM Poly NEGATIVE Reaction Interpretation NON-HEM TRANSF RX 01/24/20 01/24/20 01/24/20 Range/Units 05:15 10:05 10:05 WBC 9.81 (4.0-11.0) K/uL RBC 3.36 L (4.30-5.90) M/uL Hgb 10.1 L (12.0-16.0) g/dL Hct 28.5 L (36.0-46.0) % MCV 84.8 (80.0-98.0) fL MCH 30.1 (27.0-32.0) pg MCHC 35.4 (31.0-37.0) g/dL RDW Std Deviation 38.4 (28.0-62.0) fl RDW Coeff of Gabriel 13 (11.0-15.0) % Plt Count 106 L (150-400) K/uL MPV 10.90 (7.40-12.00) fL Neut % (Auto) 76.2 (48.0-80.0) % Lymph % (Auto) 16.5 (16.0-40.0) % Love % (Auto) 6.9 (0.0-15.0) % Eos % (Auto) 0.2 (0.0-7.0) % Baso % (Auto) 0.2 (0.0-1.5) % Neut # (Auto) 7.5 H (1.4-5.7) K/uL Lymph # (Auto) 1.6 (0.6-2.4) K/uL Love # (Auto) 0.7 (0.0-0.8) K/uL Eos # (Auto) 0.0 (0.0-0.7) K/uL Baso # (Auto) 0.0 (0.0-0.1) K/uL Fibrinogen (215-411) mg/dL Sodium 142 (136-145) mmol/L Potassium 4.0 (3.5-5.1) mmol/L Chloride 113 H (98-107) mmol/L Carbon Dioxide 17.6 L (21.0-32.0) mmol/L BUN 8 (7.0-18.0) mg/dL Creatinine 0.7 (0.6-1.0) mg/dL Est Cr Clr Drug Dosing 120.58 mL/min Estimated GFR (MDRD) > 60.0 ml/min Glucose 97 (74-106) mg/dL Calcium 7.6 L (8.5-10.1) mg/dL Magnesium 1.7 L (1.8-2.4) mg/dL Total Bilirubin 2.6 H (0.2-1.0) mg/dL AST 22 (15-37) IU/L ALT 21 (14-63) IU/L Alkaline Phosphatase 34 L (46-116) U/L Total Protein 4.1 L (6.4-8.2) g/dL Albumin 2.5 L (3.4-5.0) g/dL Globulin 1.6 L (2.6-4.0) g/dL Albumin/Globulin Ratio 1.6 (0.9-1.6) Blood Type Cancelled Antibody Screen Cancelled Screen Cancelled RhIG Candidate? Cancelled Rhogam Indicated Cancelled Crossmatch Tx Rx Implicated Unit 1 Unit 1 Component Pre-Trans Blood Type Pre-Trans Vis Hemolysis Pre-Trans Icterus Post-Trans Blood Type Post-Tx Visible Hemolys Post-Trans Icterus Post-Trans TOM Poly Reaction Interpretation 01/24/20 01/24/20 01/24/20 Range/Units 10:05 18:07 18:07 WBC 7.66 (4.0-11.0) K/uL RBC 3.26 L (4.30-5.90) M/uL Hgb 10.0 L (12.0-16.0) g/dL Hct 27.9 L (36.0-46.0) % MCV 85.6 (80.0-98.0) fL MCH 30.7 (27.0-32.0) pg MCHC 35.8 (31.0-37.0) g/dL RDW Std Deviation 39.0 (28.0-62.0) fl RDW Coeff of Gabriel 13 (11.0-15.0) % Plt Count 102 L (150-400) K/uL MPV 11.20 (7.40-12.00) fL Neut % (Auto) (48.0-80.0) % Lymph % (Auto) (16.0-40.0) % Love % (Auto) (0.0-15.0) % Eos % (Auto) (0.0-7.0) % Baso % (Auto) (0.0-1.5) % Neut # (Auto) (1.4-5.7) K/uL Lymph # (Auto) (0.6-2.4) K/uL Love # (Auto) (0.0-0.8) K/uL Eos # (Auto) (0.0-0.7) K/uL Baso # (Auto) (0.0-0.1) K/uL Fibrinogen 207 L 244 (215-411) mg/dL Sodium (136-145) mmol/L Potassium (3.5-5.1) mmol/L Chloride (98-107) mmol/L Carbon Dioxide (21.0-32.0) mmol/L BUN (7.0-18.0) mg/dL Creatinine (0.6-1.0) mg/dL Est Cr Clr Drug Dosing mL/min Estimated GFR (MDRD) ml/min Glucose (74-106) mg/dL Calcium (8.5-10.1) mg/dL Magnesium (1.8-2.4) mg/dL Total Bilirubin (0.2-1.0) mg/dL AST (15-37) IU/L ALT (14-63) IU/L Alkaline Phosphatase (46-116) U/L Total Protein (6.4-8.2) g/dL Albumin (3.4-5.0) g/dL Globulin (2.6-4.0) g/dL Albumin/Globulin Ratio (0.9-1.6) Blood Type Antibody Screen Screen RhIG Candidate? Rhogam Indicated Crossmatch Tx Rx Implicated Unit 1 Unit 1 Component Pre-Trans Blood Type Pre-Trans Vis Hemolysis Pre-Trans Icterus Post-Trans Blood Type Post-Tx Visible Hemolys Post-Trans Icterus Post-Trans TOM Poly Reaction Interpretation 01/24/20 01/25/20 01/25/20 Range/Units 18:07 05:27 05:27 WBC 7.70 (4.0-11.0) K/uL RBC 3.14 L (4.30-5.90) M/uL Hgb 9.4 L (12.0-16.0) g/dL Hct 27.2 L (36.0-46.0) % MCV 86.6 (80.0-98.0) fL MCH 29.9 (27.0-32.0) pg MCHC 34.6 (31.0-37.0) g/dL RDW Std Deviation 40.9 (28.0-62.0) fl RDW Coeff of Gabriel 13 (11.0-15.0) % Plt Count 104 L (150-400) K/uL MPV 11.30 (7.40-12.00) fL Neut % (Auto) 82.2 H (48.0-80.0) % Lymph % (Auto) 13.0 L (16.0-40.0) % Love % (Auto) 4.7 (0.0-15.0) % Eos % (Auto) 0.0 (0.0-7.0) % Baso % (Auto) 0.1 (0.0-1.5) % Neut # (Auto) 6.3 H (1.4-5.7) K/uL Lymph # (Auto) 1.0 (0.6-2.4) K/uL Love # (Auto) 0.4 (0.0-0.8) K/uL Eos # (Auto) 0.0 (0.0-0.7) K/uL Baso # (Auto) 0.0 (0.0-0.1) K/uL Fibrinogen (215-411) mg/dL Sodium 142 142 (136-145) mmol/L Potassium 3.9 3.7 (3.5-5.1) mmol/L Chloride 112 H 110 H (98-107) mmol/L Carbon Dioxide 21.9 23.5 (21.0-32.0) mmol/L BUN 8 6 L (7.0-18.0) mg/dL Creatinine 0.7 0.7 (0.6-1.0) mg/dL Est Cr Clr Drug Dosing 120.58 120.58 mL/min Estimated GFR (MDRD) > 60.0 > 60.0 ml/min Glucose 94 109 H (74-106) mg/dL Calcium 7.6 L 7.5 L (8.5-10.1) mg/dL Magnesium 1.7 L 1.8 (1.8-2.4) mg/dL Total Bilirubin 2.0 H 1.6 H (0.2-1.0) mg/dL AST 21 18 (15-37) IU/L ALT 25 24 (14-63) IU/L Alkaline Phosphatase 38 L 37 L (46-116) U/L Total Protein 4.8 L 5.0 L (6.4-8.2) g/dL Albumin 2.8 L 2.9 L (3.4-5.0) g/dL Globulin 2.0 L 2.1 L (2.6-4.0) g/dL Albumin/Globulin Ratio 1.4 1.4 (0.9-1.6) Blood Type Antibody Screen Screen RhIG Candidate? Rhogam Indicated Crossmatch Tx Rx Implicated Unit 1 Unit 1 Component Pre-Trans Blood Type Pre-Trans Vis Hemolysis Pre-Trans Icterus Post-Trans Blood Type Post-Tx Visible Hemolys Post-Trans Icterus Post-Trans TOM Poly Reaction Interpretation Yvon Results Last 24 Hours: Microbiology 01/24/20 07:55 Aerobic Blood Culture - Preliminary Blood - Venous - Lab Draw NO GROWTH AFTER 1 DAY Anaerobic Blood Culture - Final 01/24/20 07:45 Aerobic Blood Culture - Preliminary Blood - Venous NO GROWTH AFTER 1 DAY Anaerobic Blood Culture - Preliminary NO GROWTH AFTER 1 DAY Med Orders - Current: Current Medications Acetaminophen (Tylenol) 650 mg PO Q4H PRN PRN Reason: Pain (mild 1-3) Last Admin: 01/25/20 05:37 Dose: 650 mg Documented by: Albuterol (Proventil Neb Soln) 2.5 mg NEB ONETIME PRN PRN Reason: Wheezing Atropine Sulfate (Atropine 0.1 Mg/Ml) 0.5 mg IVPUSH ASDIRECTED PRN PRN Reason: Hypo-perfusion Atropine Sulfate (Atropine 0.1 Mg/Ml) 1 mg IVPUSH ASDIRECTED PRN PRN Reason: Hypo-Perfusion Benzocaine/Menthol (Cepacol Sore Throat) 1 lozenge MUCMEM Q2H PRN PRN Reason: Other Last Admin: 01/25/20 05:55 Dose: 1 lozenge Documented by: Calcium Chloride (Calcium Chloride 10%) 1 gm IVPUSH ONETIME PRN PRN Reason: MBT Dextrose/Water (Dextrose 50% In Water) 50 ml IVPUSH ASDIRECTED PRN PRN Reason: Hypoglycemia Diphenhydramine HCl (Benadryl) 25 mg IVPUSH Q6H PRN PRN Reason: Hives Epinephrine HCl (Epinephrine 1:10,000) 1 mg IVPUSH ASDIRECTED PRN PRN Reason: ACLS Guidelines Fentanyl (Sublimaze) 50 - 100 mcg IVPUSH Q5M PRN PRN Reason: Pain Norepinephrine Bitartrate (Norepinephr-0.9% Nacl 4 Mg/250) 4 mg in 250 mls @ 7.5 mls/hr IV TITRATE [place]; Protocol Last Titration: 01/24/20 15:18 Dose: 0 mcg/min, 0 mls/hr Documented by: Piperacillin Sod/Tazobactam (Sod 3.375 gm/ Sodium Chloride) 50 mls @ 100 mls/hr IV Q6H [facility] Last Admin: 01/25/20 08:06 Dose: 50 mls/hr Documented by: Vancomycin HCl 1.25 gm/ Sodium (Chloride) 250 mls @ 166.667 mls/hr IV Q8H [facility] Last Admin: 01/25/20 01:20 Dose: 166 mls/hr Documented by: Lactated Ringer's (Ringers, Lactated) 1,000 mls @ 125 mls/hr IV ASDIRECTED [facility] Last Admin: 01/25/20 04:15 Dose: 125 mls/hr Documented by: Ibuprofen (Motrin) 600 mg PO Q6H PRN PRN Reason: Pain (mild 1-3) Levothyroxine Sodium (Levothyroxine) 75 mcg PO ACBREAKFAST [facility] Last Admin: 01/25/20 08:06 Dose: 75 mcg Documented by: Methylprednisolone (Medrol) 0 mg PO TITRATE [facility]; Protocol Last Admin: 01/25/20 08:08 Dose: 1 tab Documented by: Morphine Sulfate (Morphine) 4 mg IVPUSH Q2H PRN PRN Reason: Pain (severe 7-10) Naloxone HCl (Narcan) 0.1 mg IVPUSH ASDIRECTED PRN PRN Reason: Respiratory Depression Ondansetron HCl (Zofran) 4 mg IVPUSH Q6H PRN PRN Reason: Nausea/Vomiting Promethazine HCl (Phenergan) 25 mg IM Q6H PRN PRN Reason: Nausea/Vomiting Vancomycin HCl (Pharmacy To Dose - Vancomycin) 1 dose .XX ASDIRECTED [facility] Discontinued Medications Acetaminophen (Tylenol) 650 mg PO Q4H PRN PRN Reason: Pain (mild 1-3) Calcium Gluconate (Calcium Gluconate) 1 gm IVPUSH ONETIME ONE Stop: 01/24/20 02:30 Last Admin: 01/24/20 03:13 Dose: Not Given Documented by: Calcium Gluconate (Calcium Gluconate) 1 gm IVPUSH ONETIME ONE Stop: 01/24/20 11:30 Last Admin: 01/24/20 12:06 Dose: 1 gm Documented by: Calcium Gluconate (Calcium Gluconate) 1 gm IVPUSH ONETIME ONE Stop: 01/24/20 19:45 Last Admin: 01/24/20 20:27 Dose: 1 gm Documented by: Cefazolin Sodium (Ancef) Confirm Administered Dose 2 gm .ROUTE .STK-MED ONE Stop: 01/24/20 02:50 Diphenhydramine HCl (Benadryl) 50 mg IVPUSH ONETIME ONE Stop: 01/24/20 04:53 Last Admin: 01/24/20 04:52 Dose: 50 mg Documented by: Diphenhydramine HCl (Benadryl) Confirm Administered Dose 50 mg .ROUTE .STK-MED ONE Stop: 01/24/20 04:53 Last Admin: 01/24/20 06:00 Dose: Not Given Documented by: Ephedrine Sulfate (Ephedrine Sulfate) Confirm Administered Dose 50 mg .ROUTE .STK-MED ONE Stop: 01/24/20 02:50 Etomidate (Amidate) Confirm Administered Dose 40 mg IVPUSH .STK-MED ONE Stop: 01/24/20 02:50 Fentanyl (Sublimaze) Confirm Administered Dose 250 mcg .ROUTE .STK-MED ONE Stop: 01/24/20 02:50 Fentanyl (Sublimaze) Confirm Administered Dose 100 mcg .ROUTE .STK-MED ONE Stop: 01/24/20 03:08 Last Admin: 01/24/20 06:02 Dose: Not Given Documented by: Tranexamic Acid 1,000 mg/ (Sodium Chloride) 110 mls @ 600 mls/hr IV ONETIME ONE Stop: 01/24/20 02:39 Last Admin: 01/24/20 03:02 Dose: 600 mls/hr Documented by: Sodium Chloride (Normal Saline) Confirm Administered Dose 20 mls @ as directed .ROUTE .STK-MED ONE Stop: 01/24/20 02:50 Tranexamic Acid 1,000 mg/ (Sodium Chloride) 110 mls @ 600 mls/hr IV ONETIME ONE Stop: 01/24/20 03:15 Last Admin: 01/24/20 03:10 Dose: 600 mls/hr Documented by: Phenylephrine HCl 10 mg/ (Sodium Chloride) 100 mls @ 24 mls/hr IV TITRATE [place]; Protocol Last Titration: 01/24/20 07:30 Dose: 0 mcg/min, 0 mls/hr Documented by: Magnesium Sulfate 2 gm/ Premix 50 mls @ 50 mls/hr IV ONETIME ONE Stop: 01/24/20 05:38 Last Admin: 01/24/20 06:13 Dose: 50 mls/hr Documented by: Lactated Ringer's (Ringers, Lactated) 1,000 mls @ 150 mls/hr IV ASDIRECTED [facility] Last Admin: 01/24/20 18:21 Dose: 150 mls/hr Documented by: Magnesium Sulfate (Magnesium Sulfate In Water Premix) Confirm Administered Dose 50 mls @ as directed .ROUTE .STK-MED ONE Stop: 01/24/20 06:14 Last Admin: 01/24/20 07:25 Dose: Not Given Documented by: Lactated Ringer's (Ringers, Lactated) 1,000 mls @ 999 mls/hr IV .BOLUS ONE Stop: 01/24/20 08:27 Last Admin: 01/24/20 07:30 Dose: 999 mls/hr Documented by: Magnesium Sulfate 1 gm/ Sodium (Chloride) 52 mls @ 104 mls/hr IV ONETIME ONE Stop: 01/24/20 12:29 Last Admin: 01/24/20 12:33 Dose: 104 mls/hr Documented by: Epinephrine HCl 1 mg/ Sodium (Chloride) 101 mls @ as directed IV .STK-MED ONE Stop: 01/24/20 03:11 Clindamycin Phosphate 900 mg/ (Premix) 50 mls @ as directed IV .STK-MED ONE Stop: 01/24/20 03:25 Magnesium Sulfate (Magnesium Sulfate In Water Premix) 50 mls @ 50 mls/hr IV ONETIME ONE Stop: 01/24/20 20:59 Last Admin: 01/24/20 20:44 Dose: 50 mls/hr Documented by: Magnesium Sulfate (Magnesium Sulfate 50%) 2 gm IV ONETIME ONE Stop: 01/24/20 19:45 Methylprednisolone (Medrol) 0 mg PO ASDIRECTED [facility]; Protocol Midazolam HCl (Versed 1 Mg/Ml) Confirm Administered Dose 2 mg .ROUTE .STK-MED ONE Stop: 01/24/20 02:50 Tranexamic Acid (Cyklokapron) Confirm Administered Dose 1,000 mg .ROUTE .STK-MED ONE Stop: 01/24/20 02:37 Last Admin: 01/24/20 06:01 Dose: Not Given Documented by: - Exam General: Alert, Oriented HEENT: Pupils Equal, Pupils Reactive, EOMI, Mucous Membr. Moist/Rodeo Lungs: Clear to Auscultation, Normal Respiratory Effort Cardiovascular: Regular Rate, Regular Rhythm GI/Abdominal Exam: Normal Bowel Sounds, Soft, Non-Tender, No Organomegaly, No Distention, No Abnormal Bruit, No Mass, Pelvis Stable Extremities: Normal Inspection, Normal Range of Motion, Non-Tender, No Pedal Edema, Normal Capillary Refill Peripheral Pulses: 2+: Dorsalis Pedis (L), Dorsalis Pedis (R) Skin: Warm, Dry, Intact Neurological: No New Focal Deficit Psy/Mental Status: Alert, Normal Affect, Normal Mood Sepsis Event Note - Evaluation Sepsis Screening Result: No Definite Risk - Focused Exam Vital Signs: Vital Signs Temp Resp BP BP Pulse Ox 01/25/20 08:15 97.9 F 16 107/49 L 96 01/25/20 07:00 16 105/49 L 97 01/25/20 06:00 16 108/50 L 97 01/25/20 05:00 17 108/52 L 91/48 L 96 01/25/20 04:00 98.2 F 14 95/49 L 97 01/25/20 03:00 16 98/46 L 96 01/25/20 02:00 14 107/48 L 98 01/25/20 01:00 15 104/56 L 94/56 L 98 01/25/20 00:00 97.9 F 17 107/59 L 98/55 L 100 01/24/20 23:00 16 111/54 L 98 01/24/20 22:00 15 112/55 L 100 01/24/20 21:00 16 94/52 L 90/49 L 98 - Problem List Review Problem List Initiated/Reviewed/Updated: Yes - Assessment Assessment:: POD 2 s/p suction dilation and curettage for SAB with hemorrhage/hypovolemic shock - Plan Plan:: Hypovolemic shock * VSS stable overnight, afebrile * Labs reviewed - Hgb 9.4, Plts 104, lactate and fibrinogen normalized * Adequate UOP overnight * Pain well controlled * Will remove femoral catheter and central line after placement of peripheral IV * Blood cultures pending - no growth after one day - Continue IV Zosyn and Vancomycin until blood cultures resulted * Diet as tolerated * Activity as tolerate Hypocalcemia * Ca2+ 7.5 (low) this AM * Will replace as indicated Hypomagnesia - RESOLVED * Mg2+ 1.8 (WNL) this AM Rh negative * s/p Rhogam injection on 01/24/2020 Dispo: stable, improving. Plan to remove central lines as above. Anticipate transfer to hospital floor early this afternoon pending patient status. Continue antibiotics until cultures resulted.
[2020-01-25] MEDS ORDERED: Sodium Chloride 0.9% 10 ML Syringe FLUSH PRN (09:25)
[2020-01-25] MEDS ORDERED: Sodium Chloride 0.9% 10 ML SDV IV PRN (09:25)
[2020-01-25] MEDS ORDERED: Sodium Chloride 0.9% 2.5 ML Syringe FLUSH PRN (09:25)
--- NOTE | 2020-01-25 16:08 | PN ---
THC Physician - Brief Progress [id number]/13/2020 07:02[facility] [place], [place] - [facility] - RODNEY LANDate of Service 01/24/2020 07:02HPI/Even ts of Note Case discussed with RN. 30 year old F wih missed . Had been given cytotec, follo wed by D+C. Course complicated by anemia/bleeding. Transferred to ICU for observation. Pt was give n 7 PRBCs/2FP/cryo/fluid bolus. Also treated with clindamycin and course complicated by possible tennille ction with rash/hives/SOB to either clinda or to uncrossed blood that she received. Blood reaction p peter is pending and pt was treated with benadryl with resolution of SOB and rash has started to fade. Currently on Sandor for hemodynamic support.86/46 70s 100%Recs include: hemodyanmic monitoring, add levo for improved hemodynamic support, fluid bolus, wean pressors as tolerated, echo when available, supplemental O2 PRN, ABG, GI and DVT prophylaxis, abx- vanco/zosyn with pharm to help with dosing, c heck cultures, trend LA, follow blood bank studies for possible transfusion reaction, monitor for ble eing, follow CBC/coags/fibrinogen, replace lytes as needed, trend Cr and I+Os, glycemic monitoring, p ain control, neuro checks.Interventions Minor-Communication with other healthcare providers and/or fa mily
--- NOTE | 2020-01-25 16:08 | PN ---
THC Physician - Brief Progress [id number]/14/2020 10:05[facility] [place], SELINA - MWMica (KENNETH) - MWN MACARIORODNEY BOOGIEBrianDate of Service 01/25/2020 10:05HPI/Even ts of Note eICU Progress [id number] admitted for hemorrhagic/hypovolemic shock following D&C for missed . History obtained primarily from review of EMR.Camera exam: Laying in bed. Vitals monitor re viewed.eICU Impression and Recommendations:Hemorrhagic/hypovolemic shock, resolved, off pressorsConti nuing antibiotics until cultures return is a reasonable approachAgree with discontinuation of central access and use of peripheral IVsContinue to trend H&H until stabilizedIV fluids to target euvolemiaR eplace electrolytesDVT and GI prophylaxis as appropriate.Thank you for allowing us to participate in the care of this patient.The above note transcribed with the assistance of dictation software. Please excuse any errors.Interventions Major-Hemorrhage - evaluation and management
--- NOTE | 2020-01-25 17:16 | PCM.SN.2 ---
- Free Text/Narrative Note: At bedside to see patient at 1700. Patient recently up to shower without difficulty. Tolerating regular diet without nausea/vomiting. Would like to start a stool softener this evening due to history of constipation. Denies fever/chills, headache, lightheadedness, dizziness, abdominal pain or vaginal bleeding. Vital signs stable, afebrile. Urine output adequate. Plan to repeat CBC and CMP in the AM. Pending labs and blood culture results, patient may meet criteria for discharge tomorrow. Questions elicited and answered.
[2020-01-25] MEDS: Docusate Sodium 100 MG Cap PO SCH (21:22)
[2020-01-26] MEDS ORDERED: Vancomycin 1.25 GM SDV ONE (01:38)
[2020-01-26] MEDS: Piperacillin/Tazobactam 3.375 GM in Sodium Chloride 0.9% 50 ML IV SCH ×2 (01:47→07:50)
[2020-01-26] MEDS: methylPREDNISolone 4 MG Tab 21 Tab/Dosepak PO SCH (01:48)
[2020-01-26] MEDS ORDERED: Sodium Chloride 0.9% 250 ML ONE (01:55)
[2020-01-26 04:20] LABS: BLOOD UREA NITROGEN,BUN 8 mg/dL (7.0-18.0); CARBON DIOXIDE,CO2 26.5 mmol/L (21.0-32.0); CHLORIDE,CL 111 mmol/L (98-107); GLUCOSE RANDOM 103 mg/dL (74-106); POTASSIUM,K 3.7 mmol/L (3.5-5.1); SODIUM,NA 143 mmol/L (136-145)
--- NOTE | 2020-01-26 07:09 | PCM.PN ---
<Vadim Rojas - Last Filed: 01/26/20 07:04> - General Info Date of Service: 01/26/20 Admission Dx/Problem (Free Text): Hemorrhagic/hypovolemic shock following cytotec for missed Functional Status: Reports: Pain Controlled, Tolerating Diet, Ambulating, Uri nating, Other (Feeling weak, walks slowly to avoid falling) - Review of Systems General: Reports: Weakness, Fatigue HEENT: Reports: No Symptoms Pulmonary: Reports: No Symptoms Cardiovascular: Reports: No Symptoms Gastrointestinal: Reports: No Symptoms Genitourinary: Reports: No Symptoms Musculoskeletal: Reports: No Symptoms Skin: Reports: No Symptoms Neurological: Reports: No Symptoms Psychiatric: Reports: No Symptoms - Patient Data Vitals - Most Recent: Last Vital Signs Temp 36.7 C 01/26/20 01:30 Pulse 72 01/26/20 01:30 Resp 16 01/26/20 01:30 BP 96/59 L 01/26/20 01:30 Pulse Ox 95 01/26/20 01:30 Weight - Most Recent: 198 lb 6 oz Lab Results Last 24 Hours: Laboratory Results - last 24 hr 01/25/20 01/26/20 01/26/20 Range/Units 09:05 03:55 03:55 WBC 6.47 (4.0-11.0) K/uL RBC 2.85 L (4.30-5.90) M/uL Hgb 8.6 L (12.0-16.0) g/dL Hct 25.1 L (36.0-46.0) % MCV 88.1 (80.0-98.0) fL MCH 30.2 (27.0-32.0) pg MCHC 34.3 (31.0-37.0) g/dL RDW Std Deviation 44.3 (28.0-62.0) fl RDW Coeff of Gabriel 14 (11.0-15.0) % Plt Count 104 L (150-400) K/uL MPV 11.00 (7.40-12.00) fL Neut % (Auto) 72.7 (48.0-80.0) % Lymph % (Auto) 21.9 (16.0-40.0) % [place] % (Auto) 4.9 (0.0-15.0) % Eos % (Auto) 0.3 (0.0-7.0) % Baso % (Auto) 0.2 (0.0-1.5) % Neut # (Auto) 4.7 (1.4-5.7) K/uL Lymph # (Auto) 1.4 (0.6-2.4) K/uL [place] # (Auto) 0.3 (0.0-0.8) K/uL Eos # (Auto) 0.0 (0.0-0.7) K/uL Baso # (Auto) 0.0 (0.0-0.1) K/uL Nucleated RBC % 0.0 /100WBC Nucleated RBCs # 0 K/uL Sodium 143 (136-145) mmol/L Potassium 3.7 (3.5-5.1) mmol/L Chloride 111 H (98-107) mmol/L Carbon Dioxide 26.5 (21.0-32.0) mmol/L BUN 8 (7.0-18.0) mg/dL Creatinine 0.7 (0.6-1.0) mg/dL Est Cr Clr Drug Dosing 120.58 mL/min Estimated GFR (MDRD) > 60.0 ml/min Glucose 103 (74-106) mg/dL Calcium 7.3 L (8.5-10.1) mg/dL Total Bilirubin 1.1 H (0.2-1.0) mg/dL AST 11 L (15-37) IU/L ALT 21 (14-63) IU/L Alkaline Phosphatase 32 L (46-116) U/L Total Protein 4.8 L (6.4-8.2) g/dL Albumin 2.8 L (3.4-5.0) g/dL Globulin 2.0 L (2.6-4.0) g/dL Albumin/Globulin Ratio 1.4 (0.9-1.6) Vancomycin Trough 17.2 H (5.0-10.0) ug/mL Yvon Results Last 24 Hours: Microbiology 01/24/20 07:55 Aerobic Blood Culture - Preliminary Blood - Venous - Lab Draw NO GROWTH AFTER 1 DAY Anaerobic Blood Culture - Final 01/24/20 07:45 Aerobic Blood Culture - Preliminary Blood - Venous NO GROWTH AFTER 1 DAY Anaerobic Blood Culture - Preliminary NO GROWTH AFTER 1 DAY Med Orders - Current: Current Medications Acetaminophen (Tylenol) 650 mg PO Q4H PRN PRN Reason: Pain (mild 1-3) Last Admin: 01/25/20 10:15 Dose: 650 mg Documented by: Albuterol (Proventil Neb Soln) 2.5 mg NEB ONETIME PRN PRN Reason: Wheezing Atropine Sulfate (Atropine 0.1 Mg/Ml) 0.5 mg IVPUSH ASDIRECTED PRN PRN Reason: Hypo-perfusion Atropine Sulfate (Atropine 0.1 Mg/Ml) 1 mg IVPUSH ASDIRECTED PRN PRN Reason: Hypo-Perfusion Benzocaine/Menthol (Cepacol Sore Throat) 1 lozenge MUCMEM Q2H PRN PRN Reason: Other Last Admin: 01/25/20 05:55 Dose: 1 lozenge Documented by: Calcium Chloride (Calcium Chloride 10%) 1 gm IVPUSH ONETIME PRN PRN Reason: MBT Dextrose/Water (Dextrose 50% In Water) 50 ml IVPUSH ASDIRECTED PRN PRN Reason: Hypoglycemia Diphenhydramine HCl (Benadryl) 25 mg IVPUSH Q6H PRN PRN Reason: Hives Docusate Sodium (Colace) 100 mg PO BID [facility] Last Admin: 01/25/20 21:22 Dose: 100 mg Documented by: Epinephrine HCl (Epinephrine 1:10,000) 1 mg IVPUSH ASDIRECTED PRN PRN Reason: ACLS Guidelines Fentanyl (Sublimaze) 50 - 100 mcg IVPUSH Q5M PRN PRN Reason: Pain Norepinephrine Bitartrate (Norepinephr-0.9% Nacl 4 Mg/250) 4 mg in 250 mls @ 7.5 mls/hr IV TITRATE [facility]; Protocol Last Titration: 01/24/20 15:18 Dose: 0 mcg/min, 0 mls/hr Documented by: Piperacillin Sod/Tazobactam (Sod 3.375 gm/ Sodium Chloride) 50 mls @ 100 mls/hr IV Q6H [facility] Last Admin: 01/26/20 01:47 Dose: 100 mls/hr Documented by: Vancomycin HCl 1.25 gm/ Sodium (Chloride) 250 mls @ 166.667 mls/hr IV Q8H [facility] Last Admin: 01/26/20 02:18 Dose: 166 mls/hr Documented by: Ibuprofen (Motrin) 600 mg PO Q6H PRN PRN Reason: Pain (mild 1-3) Levothyroxine Sodium (Levothyroxine) 75 mcg PO ACBREAKFAST [facility] Last Admin: 01/25/20 08:22 Dose: Not Given Documented by: Methylprednisolone (Medrol) 0 mg PO TITRATE [facility]; Protocol Last Admin: 01/26/20 01:48 Dose: 2 tab Documented by: Morphine Sulfate (Morphine) 4 mg IVPUSH Q2H PRN PRN Reason: Pain (severe 7-10) Naloxone HCl (Narcan) 0.1 mg IVPUSH ASDIRECTED PRN PRN Reason: Respiratory Depression Ondansetron HCl (Zofran) 4 mg IVPUSH Q6H PRN PRN Reason: Nausea/Vomiting Promethazine HCl (Phenergan) 25 mg IM Q6H PRN PRN Reason: Nausea/Vomiting Sodium Chloride (Saline Flush) 10 ml FLUSH ASDIRECTED PRN PRN Reason: Keep Vein Open Sodium Chloride (Saline Flush) 2.5 ml FLUSH ASDIRECTED PRN PRN Reason: Keep Vein Open Sodium Chloride (Normal Saline) 10 ml IV ASDIRECTED PRN PRN Reason: IV Use Vancomycin HCl (Pharmacy To Dose - Vancomycin) 1 dose .XX ASDIRECTED [facility] Discontinued Medications Acetaminophen (Tylenol) 650 mg PO Q4H PRN PRN Reason: Pain (mild 1-3) Calcium Gluconate (Calcium Gluconate) 1 gm IVPUSH ONETIME ONE Stop: 01/24/20 02:30 Last Admin: 01/24/20 03:13 Dose: Not Given Documented by: Calcium Gluconate (Calcium Gluconate) 1 gm IVPUSH ONETIME ONE Stop: 01/24/20 11:30 Last Admin: 01/24/20 12:06 Dose: 1 gm Documented by: Calcium Gluconate (Calcium Gluconate) 1 gm IVPUSH ONETIME ONE Stop: 01/24/20 19:45 Last Admin: 01/24/20 20:27 Dose: 1 gm Documented by: Cefazolin Sodium (Ancef) Confirm Administered Dose 2 gm .ROUTE .[facility]-MED ONE Stop: 01/24/20 02:50 Diphenhydramine HCl (Benadryl) 50 mg IVPUSH ONETIME ONE Stop: 01/24/20 04:53 Last Admin: 01/24/20 04:52 Dose: 50 mg Documented by: Diphenhydramine HCl (Benadryl) Confirm Administered Dose 50 mg .ROUTE .[facility]-MED ONE Stop: 01/24/20 04:53 Last Admin: 01/24/20 06:00 Dose: Not Given Documented by: Ephedrine Sulfate (Ephedrine Sulfate) Confirm Administered Dose 50 mg .ROUTE .[facility]-MED ONE Stop: 01/24/20 02:50 Etomidate (Amidate) Confirm Administered Dose 40 mg IVPUSH .ST-MED ONE Stop: 01/24/20 02:50 Fentanyl (Sublimaze) Confirm Administered Dose 250 mcg .ROUTE .[facility]-MED ONE Stop: 01/24/20 02:50 Fentanyl (Sublimaze) Confirm Administered Dose 100 mcg .ROUTE .[facility] ONE Stop: 01/24/20 03:08 Last Admin: 01/24/20 06:02 Dose: Not Given Documented by: Tranexamic Acid 1,000 mg/ (Sodium Chloride) 110 mls @ 600 mls/hr IV ONETIME ONE Stop: 01/24/20 02:39 Last Admin: 01/24/20 03:02 Dose: 600 mls/hr Documented by: Sodium Chloride (Normal Saline) Confirm Administered Dose 20 mls @ as directed .ROUTE .[facility] ONE Stop: 01/24/20 02:50 Tranexamic Acid 1,000 mg/ (Sodium Chloride) 110 mls @ 600 mls/hr IV ONETIME ONE Stop: 01/24/20 03:15 Last Admin: 01/24/20 03:10 Dose: 600 mls/hr Documented by: Phenylephrine HCl 10 mg/ (Sodium Chloride) 100 mls @ 24 mls/hr IV TITRATE [facility]; Protocol Last Titration: 01/24/20 07:30 Dose: 0 mcg/min, 0 mls/hr Documented by: Magnesium Sulfate 2 gm/ Premix 50 mls @ 50 mls/hr IV ONETIME ONE Stop: 01/24/20 05:38 Last Admin: 01/24/20 06:13 Dose: 50 mls/hr Documented by: Lactated Ringer's (Ringers, Lactated) 1,000 mls @ 150 mls/hr IV ASDIRECTED [place] Last Admin: 01/24/20 18:21 Dose: 150 mls/hr Documented by: Magnesium Sulfate (Magnesium Sulfate In Water Premix) Confirm Administered Dose 50 mls @ as directed .ROUTE .[facility]-MED ONE Stop: 01/24/20 06:14 Last Admin: 01/24/20 07:25 Dose: Not Given Documented by: Lactated Ringer's (Ringers, Lactated) 1,000 mls @ 999 mls/hr IV .[facility] ONE Stop: 01/24/20 08:27 Last Admin: 01/24/20 07:30 Dose: 999 mls/hr Documented by: Magnesium Sulfate 1 gm/ Sodium (Chloride) 52 mls @ 104 mls/hr IV ONETIME ONE Stop: 01/24/20 12:29 Last Admin: 01/24/20 12:33 Dose: 104 mls/hr Documented by: Epinephrine HCl 1 mg/ Sodium (Chloride) 101 mls @ as directed IV .[facility]-MED ONE Stop: 01/24/20 03:11 Clindamycin Phosphate 900 mg/ (Premix) 50 mls @ as directed IV .[facility]-MED ONE Stop: 01/24/20 03:25 Magnesium Sulfate (Magnesium Sulfate In Water Premix) 50 mls @ 50 mls/hr IV ONETIME ONE Stop: 01/24/20 20:59 Last Admin: 01/24/20 20:44 Dose: 50 mls/hr Documented by: Lactated Ringer's (Ringers, Lactated) 1,000 mls @ 125 mls/hr IV ASDIRECTED [facility] Last Admin: 01/25/20 04:15 Dose: 125 mls/hr Documented by: Sodium Chloride (Normal Saline (Advbag)) Confirm Administered Dose 250 mls @ as directed .ROUTE .[facility]-MED ONE Stop: 01/26/20 01:56 Magnesium Sulfate (Magnesium Sulfate 50%) 2 gm IV ONETIME ONE Stop: 01/24/20 19:45 Methylprednisolone (Medrol) 0 mg PO ASDIRECTED [facility]; Protocol Midazolam HCl (Versed 1 Mg/Ml) Confirm Administered Dose 2 mg .ROUTE .[facility]-MED ONE Stop: 01/24/20 02:50 Tranexamic Acid (Cyklokapron) Confirm Administered Dose 1,000 mg .ROUTE .[facility] ONE Stop: 01/24/20 02:37 Last Admin: 01/24/20 06:01 Dose: Not Given Documented by: Vancomycin HCl (Vancomycin) Confirm Administered Dose 1.25 gm .ROUTE .[facility]-MED ONE Stop: 01/26/20 01:39 - Exam General: Alert, Oriented, Cooperative, No Acute Distress HEENT: Pupils Equal, EOMI, Mucous Membr. Moist/[place] Neck: Supple, Trachea Midline Lungs: Clear to Auscultation, Normal Respiratory Effort Cardiovascular: Regular Rate, Regular Rhythm, No Murmurs GI/Abdominal Exam: Normal Bowel Sounds, Soft, Non-Tender, No Organomegaly, No Distention, No Abnormal Bruit, No Mass Back Exam: Normal Inspection Extremities: Normal Inspection, Non-Tender, No Pedal Edema, Normal Capillary Refill Peripheral Pulses: 2+: Radial (L), Radial (R), Posterior Tibial (L), Posterior Tibial (R) Skin: Warm, Intact, Moist, Other (Urticaria fully resolved, Benadryl helped clear allergy rashes completely. ) Neurological: No New Focal Deficit Psy/Mental Status: Alert, Normal Affect, Normal Mood Sepsis Event Note - Evaluation Sepsis Screening Result: No Definite Risk - Focused Exam Vital Signs: Vital Signs Temp Pulse Resp BP Pulse Ox 01/26/20 01:30 36.7 C 72 16 96/59 L 95 01/25/20 19:30 36.7 C 88 16 129/62 100 - Problem List Review Problem List Initiated/Reviewed/Updated: Yes - Assessment Assessment:: POD 3 s/p suction dilation and curettage for SAB with hemorrhage/hypovolemic shock - Plan Plan:: Hypovolemic shock * Hypotensive this morning (BP = 96/59), other vitals within normal limits, afebrile * Labs reviewed - Hgb 8.6 (down from 10.1 on 01/24/2020), Hct 25.1 (down from 28.5 on 01/24/2020), Plts 104, lactate and fibrinogen normalized * Pain well controlled * Femoral catheter and central line out, peripheral IV lines in place, no IVF given at this time * Blood cultures pending - no growth after one day - Continue IV Zosyn and Vancomycin until blood cultures return (preliminary results show no growth after one day) * Diet as tolerated * Activity as tolerated Hypocalcemia * Ca2+ 7.3 (low) this AM * Will replace as indicated Hypomagnesia - RESOLVED * Mg2+ 1.8 yesterday morning Rh negative * s/p Rhogam injection on 01/24/2020 -Continue antibiotics until cultures return (preliminary results show no growth after one day) -Continue to monitor BP <LaurelShelley - Last Filed: 01/26/20 09:58> - Patient Data Vitals - Most Recent: Last Vital Signs Temp 97.7 F 01/26/20 08:25 Pulse 73 01/26/20 08:25 Resp 13 01/26/20 08:25 BP 112/68 01/26/20 08:25 Pulse Ox 98 01/26/20 08:25 Lab Results Last 24 Hours: Laboratory Results - last 24 hr 01/26/20 01/26/20 Range/Units 03:55 03:55 WBC 6.47 (4.0-11.0) K/uL RBC 2.85 L (4.30-5.90) M/uL Hgb 8.6 L (12.0-16.0) g/dL Hct 25.1 L (36.0-46.0) % MCV 88.1 (80.0-98.0) fL MCH 30.2 (27.0-32.0) pg MCHC 34.3 (31.0-37.0) g/dL RDW Std Deviation 44.3 (28.0-62.0) fl RDW Coeff of Gabriel 14 (11.0-15.0) % Plt Count 104 L (150-400) K/uL MPV 11.00 (7.40-12.00) fL Neut % (Auto) 72.7 (48.0-80.0) % Lymph % (Auto) 21.9 (16.0-40.0) % [place] % (Auto) 4.9 (0.0-15.0) % Eos % (Auto) 0.3 (0.0-7.0) % Baso % (Auto) 0.2 (0.0-1.5) % Neut # (Auto) 4.7 (1.4-5.7) K/uL Lymph # (Auto) 1.4 (0.6-2.4) K/uL [place] # (Auto) 0.3 (0.0-0.8) K/uL Eos # (Auto) 0.0 (0.0-0.7) K/uL Baso # (Auto) 0.0 (0.0-0.1) K/uL Nucleated RBC % 0.0 /100WBC Nucleated RBCs # 0 K/uL Sodium 143 (136-145) mmol/L Potassium 3.7 (3.5-5.1) mmol/L Chloride 111 H (98-107) mmol/L Carbon Dioxide 26.5 (21.0-32.0) mmol/L BUN 8 (7.0-18.0) mg/dL Creatinine 0.7 (0.6-1.0) mg/dL Est Cr Clr Drug Dosing 120.58 mL/min Estimated GFR (MDRD) > 60.0 ml/min Glucose 103 (74-106) mg/dL Calcium 7.3 L (8.5-10.1) mg/dL Total Bilirubin 1.1 H (0.2-1.0) mg/dL AST 11 L (15-37) IU/L ALT 21 (14-63) IU/L Alkaline Phosphatase 32 L (46-116) U/L Total Protein 4.8 L (6.4-8.2) g/dL Albumin 2.8 L (3.4-5.0) g/dL Globulin 2.0 L (2.6-4.0) g/dL Albumin/Globulin Ratio 1.4 (0.9-1.6) Yvon Results Last 24 Hours: Microbiology 01/24/20 07:55 Aerobic Blood Culture - Preliminary Blood - Venous - Lab Draw NO GROWTH AFTER 2 DAYS Anaerobic Blood Culture - Final 01/24/20 07:45 Aerobic Blood Culture - Preliminary Blood - Venous NO GROWTH AFTER 2 DAYS Anaerobic Blood Culture - Preliminary NO GROWTH AFTER 2 DAYS Med Orders - Current: Current Medications Acetaminophen (Tylenol) 650 mg PO Q4H PRN PRN Reason: Pain (mild 1-3) Last Admin: 01/25/20 10:15 Dose: 650 mg Documented by: Albuterol (Proventil Neb Soln) 2.5 mg NEB ONETIME PRN PRN Reason: Wheezing Atropine Sulfate (Atropine 0.1 Mg/Ml) 0.5 mg IVPUSH ASDIRECTED PRN PRN Reason: Hypo-perfusion Atropine Sulfate (Atropine 0.1 Mg/Ml) 1 mg IVPUSH ASDIRECTED PRN PRN Reason: Hypo-Perfusion Benzocaine/Menthol (Cepacol Sore Throat) 1 lozenge MUCMEM Q2H PRN PRN Reason: Other Last Admin: 01/25/20 05:55 Dose: 1 lozenge Documented by: Calcium Chloride (Calcium Chloride 10%) 1 gm IVPUSH ONETIME PRN PRN Reason: MBT Dextrose/Water (Dextrose 50% In Water) 50 ml IVPUSH ASDIRECTED PRN PRN Reason: Hypoglycemia Diphenhydramine HCl (Benadryl) 25 mg IVPUSH Q6H PRN PRN Reason: Hives Docusate Sodium (Colace) 100 mg PO BID [facility] Last Admin: 01/25/20 21:22 Dose: 100 mg Documented by: Epinephrine HCl (Epinephrine 1:10,000) 1 mg IVPUSH ASDIRECTED PRN PRN Reason: ACLS Guidelines Fentanyl (Sublimaze) 50 - 100 mcg IVPUSH Q5M PRN PRN Reason: Pain Ferrous Sulfate (Ferrous Sulfate) 325 mg PO BIDMEALS [facility] Norepinephrine Bitartrate (Norepinephr-0.9% Nacl 4 Mg/250) 4 mg in 250 mls @ 7.5 mls/hr IV TITRATE [facility]; Protocol Last Titration: 01/24/20 15:18 Dose: 0 mcg/min, 0 mls/hr Documented by: Piperacillin Sod/Tazobactam (Sod 3.375 gm/ Sodium Chloride) 50 mls @ 100 mls/hr IV Q6H [facility] Last Admin: 01/26/20 07:50 Dose: 100 mls/hr Documented by: Vancomycin HCl 1.25 gm/ Sodium (Chloride) 250 mls @ 166.667 mls/hr IV Q8H [facility] Last Admin: 01/26/20 09:28 Dose: 166 mls/hr Documented by: Ibuprofen (Motrin) 600 mg PO Q6H PRN PRN Reason: Pain (mild 1-3) Methylprednisolone (Medrol) 0 mg PO TITRATE [facility]; Protocol Last Admin: 01/26/20 01:48 Dose: 2 tab Documented by: Morphine Sulfate (Morphine) 4 mg IVPUSH Q2H PRN PRN Reason: Pain (severe 7-10) Naloxone HCl (Narcan) 0.1 mg IVPUSH ASDIRECTED PRN PRN Reason: Respiratory Depression Ondansetron HCl (Zofran) 4 mg IVPUSH Q6H PRN PRN Reason: Nausea/Vomiting Levothyroxine 75 Mcg (Tab) 1 each PO ACBREAKFAST [facility] Last Admin: 01/26/20 09:40 Dose: 1 each Documented by: Promethazine HCl (Phenergan) 25 mg IM Q6H PRN PRN Reason: Nausea/Vomiting Sodium Chloride (Saline Flush) 10 ml FLUSH ASDIRECTED PRN PRN Reason: Keep Vein Open Sodium Chloride (Saline Flush) 2.5 ml FLUSH ASDIRECTED PRN PRN Reason: Keep Vein Open Sodium Chloride (Normal Saline) 10 ml IV ASDIRECTED PRN PRN Reason: IV Use Vancomycin HCl (Pharmacy To Dose - Vancomycin) 1 dose .XX ASDIRECTED [facility] Discontinued Medications Acetaminophen (Tylenol) 650 mg PO Q4H PRN PRN Reason: Pain (mild 1-3) Calcium Gluconate (Calcium Gluconate) 1 gm IVPUSH ONETIME ONE Stop: 01/24/20 02:30 Last Admin: 01/24/20 03:13 Dose: Not Given Documented by: Calcium Gluconate (Calcium Gluconate) 1 gm IVPUSH ONETIME ONE Stop: 01/24/20 11:30 Last Admin: 01/24/20 12:06 Dose: 1 gm Documented by: Calcium Gluconate (Calcium Gluconate) 1 gm IVPUSH ONETIME ONE Stop: 01/24/20 19:45 Last Admin: 01/24/20 20:27 Dose: 1 gm Documented by: Cefazolin Sodium (Ancef) Confirm Administered Dose 2 gm .ROUTE .ST[facility]-MED ONE Stop: 01/24/20 02:50 Diphenhydramine HCl (Benadryl) 50 mg IVPUSH ONETIME ONE Stop: 01/24/20 04:53 Last Admin: 01/24/20 04:52 Dose: 50 mg Documented by: Diphenhydramine HCl (Benadryl) Confirm Administered Dose 50 mg .ROUTE .ST[facility]-MED ONE Stop: 01/24/20 04:53 Last Admin: 01/24/20 06:00 Dose: Not Given Documented by: Ephedrine Sulfate (Ephedrine Sulfate) Confirm Administered Dose 50 mg .ROUTE .ST[facility]-MED ONE Stop: 01/24/20 02:50 Etomidate (Amidate) Confirm Administered Dose 40 mg IVPUSH .STK-MED ONE Stop: 01/24/20 02:50 Fentanyl (Sublimaze) Confirm Administered Dose 250 mcg .ROUTE .STK-MED ONE Stop: 01/24/20 02:50 Fentanyl (Sublimaze) Confirm Administered Dose 100 mcg .ROUTE .STK-MED ONE Stop: 01/24/20 03:08 Last Admin: 01/24/20 06:02 Dose: Not Given Documented by: Tranexamic Acid 1,000 mg/ (Sodium Chloride) 110 mls @ 600 mls/hr IV ONETIME ONE Stop: 01/24/20 02:39 Last Admin: 01/24/20 03:02 Dose: 600 mls/hr Documented by: Sodium Chloride (Normal Saline) Confirm Administered Dose 20 mls @ as directed .ROUTE .[facility]-MED ONE Stop: 01/24/20 02:50 Tranexamic Acid 1,000 mg/ (Sodium Chloride) 110 mls @ 600 mls/hr IV ONETIME ONE Stop: 01/24/20 03:15 Last Admin: 01/24/20 03:10 Dose: 600 mls/hr Documented by: Phenylephrine HCl 10 mg/ (Sodium Chloride) 100 mls @ 24 mls/hr IV TITRATE [facility]; Protocol Last Titration: 01/24/20 07:30 Dose: 0 mcg/min, 0 mls/hr Documented by: Magnesium Sulfate 2 gm/ Premix 50 mls @ 50 mls/hr IV ONETIME ONE Stop: 01/24/20 05:38 Last Admin: 01/24/20 06:13 Dose: 50 mls/hr Documented by: Lactated Ringer's (Ringers, Lactated) 1,000 mls @ 150 mls/hr IV ASDIRECTED [facility] Last Admin: 01/24/20 18:21 Dose: 150 mls/hr Documented by: Magnesium Sulfate (Magnesium Sulfate In Water Premix) Confirm Administered Dose 50 mls @ as directed .ROUTE .[facility]-MED ONE Stop: 01/24/20 06:14 Last Admin: 01/24/20 07:25 Dose: Not Given Documented by: Lactated Ringer's (Ringers, Lactated) 1,000 mls @ 999 mls/hr IV .[facility] ONE Stop: 01/24/20 08:27 Last Admin: 01/24/20 07:30 Dose: 999 mls/hr Documented by: Magnesium Sulfate 1 gm/ Sodium (Chloride) 52 mls @ 104 mls/hr IV ONETIME ONE Stop: 01/24/20 12:29 Last Admin: 01/24/20 12:33 Dose: 104 mls/hr Documented by: Epinephrine HCl 1 mg/ Sodium (Chloride) 101 mls @ as directed IV .ST[facility]-MED ONE Stop: 01/24/20 03:11 Clindamycin Phosphate 900 mg/ (Premix) 50 mls @ as directed IV .STK-MED ONE Stop: 01/24/20 03:25 Magnesium Sulfate (Magnesium Sulfate In Water Premix) 50 mls @ 50 mls/hr IV ONETIME ONE Stop: 01/24/20 20:59 Last Admin: 01/24/20 20:44 Dose: 50 mls/hr Documented by: Lactated Ringer's (Ringers, Lactated) 1,000 mls @ 125 mls/hr IV ASDIRECTED [facility] Last Admin: 01/25/20 04:15 Dose: 125 mls/hr Documented by: Sodium Chloride (Normal Saline (Advbag)) Confirm Administered Dose 250 mls @ as directed .ROUTE .STK-MED ONE Stop: 01/26/20 01:56 Levothyroxine Sodium (Levothyroxine) 75 mcg PO ACBREAKFAST [facility] Last Admin: 01/25/20 08:22 Dose: Not Given Documented by: Magnesium Sulfate (Magnesium Sulfate 50%) 2 gm IV ONETIME ONE Stop: 01/24/20 19:45 Methylprednisolone (Medrol) 0 mg PO ASDIRECTED [facility]; Protocol Midazolam HCl (Versed 1 Mg/Ml) Confirm Administered Dose 2 mg .ROUTE .STK-MED ONE Stop: 01/24/20 02:50 Tranexamic Acid (Cyklokapron) Confirm Administered Dose 1,000 mg .ROUTE .STK-MED ONE Stop: 01/24/20 02:37 Last Admin: 01/24/20 06:01 Dose: Not Given Documented by: Vancomycin HCl (Vancomycin) Confirm Administered Dose 1.25 gm .ROUTE .STK-MED ONE Stop: 01/26/20 01:39 Sepsis Event Note - Focused Exam Vital Signs: Vital Signs Temp Pulse Resp BP Pulse Ox 01/26/20 08:25 97.7 F 73 13 112/68 98 01/26/20 01:30 98.1 F 72 16 96/59 L 95 - My Orders Last 24 Hours: My Active Orders 01/25/20 09:25 Sodium Chloride 0.9% [Normal Saline] 10 ml IV ASDIRECTED PRN Sodium Chloride 0.9% [Saline Flush] 10 ml FLUSH ASDIRECTED PRN Sodium Chloride 0.9% [Saline Flush] 2.5 ml FLUSH ASDIRECTED PRN Peripheral IV Insertion Adult [OM.PC] Routine 01/25/20 09:26 Central Venous Line Discontinue [OM.PC] Routine 01/25/20 13:17 Cardiac Monitoring Discontinue [RC] Click to Edit 01/25/20 13:18 Arterial Line Discontinue [OM.PC] Routine 01/25/20 13:49 Transfer Patient (Change bed) [ADT] Routine 01/25/20 21:00 Docusate Sodium [Colace] 100 mg PO BID 01/26/20 08:55 Ferrous Sulfate 325 mg PO BIDMEALS 01/26/20 09:06 VANCOMYCIN TROUGH [CHEM] Routine - Plan Plan:: Patient seen this morning at bedside. Ambulating about room without difficulty. Mood stable. Denies fever/chills, headache, lightheadedness, nausea/vomiting, abdominal pain or vaginal bleeding. Vital stables, last BP normotensive. Afebrile. Hgb 9.4 > 8.6 after receiving IVF yesterday. No vaginal bleeding. Started PO iron this today. Calcium 7.3 this morning, however, albumin 2.8. Corrected calcium 8.3, will replace orally this AM. Blood cultures resulted negative after 48hrs. Will discontinue antibiotics this AM. Patient strongly desires discharge today. Reviewed precautions including fever/chills, intractable nausea/vomiting, severe pain not controlled by Tylenol/Ibuprofen or heavy vaginal bleeding with filling 2 pads/hour for more than 2 hours. Questions elicited and answered. Plan for discharge today with prescriptions for PO iron and Colace. Patient to follow up in 2 weeks for postoperative visit at [facility].
[2020-01-26] MEDS ORDERED: Levothyroxine 75 MCG Tab PO SCH (08:51)
[2020-01-26] MEDS ORDERED: Ferrous Sulfate 325 MG Tab PO SCH (08:55)
[2020-01-26] MEDS: Docusate Sodium 100 MG Cap PO SCH (09:53)
[2020-01-26] MEDS ORDERED: Calcium Carbonate 500 MG Tab.Chew PO PRN (09:59)
[2020-01-26] MEDS: Levothyroxine 75 MCG Tab PO SCH (11:57)
== END 2020-01-26 12:05 | disposition home or self-care (01) ==
LOC: MW.ED 02:26 → MW.ICU 04:37 → MW.OB 01-25 14:43
PROVIDERS: ADMIT Obstetrics & Gynecology; ATTEND Obstetrics & Gynecology
DX: O03.1 Delayed or excessive hemorrhage following incomplete spontaneous abortion (principal); O03.31 Shock following incomplete spontaneous abortion; E03.9 Hypothyroidism, unspecified; E83.51 Hypocalcemia; E83.42 Hypomagnesemia; F17.200 Nicotine dependence, unspecified, uncomplicated; Z79.890 Hormone replacement therapy; Z88.1 Allergy status to other antibiotic agents; Z91.040 Latex allergy status; Z67.11 Type A blood, Rh negative; Z01.812 Encounter for preprocedural laboratory examination; Z20.828 Contact with and (suspected) exposure to other viral communicable diseases
CPT/HCPCS: 36415; 36430; 36600; 59812; 71045; 80053; 80202; 82803; 83605; 83735; 85025; 85027; 85384; 85610; 85730; 86850; 86900; 86901; 86920; 86921; 86922; 87040; 87635; 88305; 96361; 96365; 96366; 96367; 96375; 96376; A9270; G0378; J0171; J0610; J1200; J2370; J2543; J2792; J3010; J3370; J3475; J3490; J7050; J7120; P9012; P9017; 01965; J0690; J2250; U0002

== ENCOUNTER 2021-04-10 02:06 | Inpatient (IN) | payer BC ==
[2021-04-10] MEDS: Lactated Ringers 1,000 ML IV SCH ×2 (02:06→04:13)
[2021-04-10] MEDS ORDERED: Oxytocin/0.9 % Sodium Chloride 30 UNIT/500 ML BAG ONE (02:23)
[2021-04-10] MEDS ORDERED: Lidocaine 2% 5 ML SDV ONE (02:34)
[2021-04-10] MEDS ORDERED: Ropivacaine HCl/PF 200 ML ONE (02:34)
[2021-04-10] MEDS ORDERED: Tranexamic Acid 1,000 MG in Sodium Chloride 0.9% 100 ML IV PRN (02:44)
[2021-04-10] MEDS ORDERED: Lidocaine 1% 50 ML MDV INJECT PRN (02:44)
[2021-04-10] MEDS ORDERED: Sodium Chloride 0.9% 20 ML SDV IV PRN (02:44)
[2021-04-10] MEDS ORDERED: Sodium Chloride 0.9% 2.5 ML Syringe FLUSH PRN (02:44)
[2021-04-10] MEDS ORDERED: Nalbuphine 10 MG/1 ML Vial IVPUSH PRN (02:44)
[2021-04-10] MEDS ORDERED: Carboprost Tromethamine 250 MCG/1 ML Amp IM PRN (02:44)
[2021-04-10] MEDS ORDERED: Methylergonovine 0.2 MG/1 ML Amp IM PRN (02:44)
[2021-04-10] MEDS ORDERED: Butorphanol 1 MG/ML SDV IVPUSH PRN (02:44)
[2021-04-10] MEDS ORDERED: Sodium Chloride 0.9% 10 ML Syringe FLUSH PRN (02:44)
[2021-04-10] MEDS ORDERED: Water For Irrigation,Sterile 1,000 ML Container IRR PRN (02:44)
[2021-04-10] MEDS ORDERED: Misoprostol 200 MCG Tab PO PRN (02:44)
[2021-04-10] MEDS ORDERED: Ondansetron 4 MG/2 ML SDV IVPUSH PRN (02:44)
[2021-04-10] MEDS ORDERED: Oxytocin/0.9 % Sodium Chloride 30 UNIT/500 ML BAG IV SCH (02:45)
[2021-04-10] MEDS ORDERED: Carboprost Tromethamine 250 MCG/1 ML Amp ONE (02:46)
[2021-04-10] MEDS ORDERED: Methylergonovine 0.2 MG/1 ML Amp ONE (02:46)
--- NOTE | 2021-04-10 02:55 | PCM.POSTAN ---
POST ANESTHESIA ASSESSMENT - MENTAL STATUS Mental Status: Alert, Oriented - RESPIRATORY Respiratory Status: Respiratory Rate WNL, Airway Patent, O2 Saturation Stable - CARDIOVASCULAR CV Status: Pulse Rate WNL, Blood Pressure Stable - GASTROINTESTINAL GI Status: No Symptoms - POST OP HYDRATION Hydration Status: Adequate & Stable
--- NOTE | 2021-04-10 02:55 | PCM.PREANE ---
Preanesthetic Assessment - Anesthesia/Transfusion/Family Hx Anesthesia History: Prior Anesthesia Without Reaction Family History of Anesthesia Reaction: No Intubation History: Unknown - Review of Systems General: No Symptoms Pulmonary: No Symptoms Cardiovascular: No Symptoms Gastrointestinal: No Symptoms Neurological: No Symptoms Other: Reports: None - Physical Assessment NPO Status Date: 04/09/21 NPO Status Time: 21:00 ASA Class: 2 Mental Status: Alert & Oriented x3 Airway Class: Mallampati = 2 Dentition: Reports: Normal Dentition Thyro-Mental Finger Breadths: 3 Mouth Opening Finger Breadths: 3 ROM/Head Extension: Full Lungs: Clear to Auscultation, Normal Respiratory Effort Cardiovascular: Regular Rate, Regular Rhythm - Allergies Allergies/Adverse Reactions: Allergies Allergy/AdvReac Type Severity Reaction Status Date / Time cephalexin Allergy Severe Arrhythmias Verified 01/24/20 04:38 clindamycin Allergy Severe Shortness Verified 01/24/20 06:28 of Breath Latex, Natural Rubber Allergy Intermediate Itching Verified 01/24/20 04:38 - Acknowledgements Anesthesia Type Planned: Epidural Pt an Appropriate Candidate for the Planned Anesthesia: Yes Alternatives and Risks of Anesthesia Discussed w Pt/Guardian: Yes Pt/Guardian Understands and Agrees with Anesthesia Plan: Yes Additional Comments: Patient is a PreAnesthesia Questionnaire - Past Health History Medical/Surgical History: Denies 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 She was of epi drip which was discontinued before arrivel. Parient borderline hypotensive, c/o lower abdomial pain.) Endocrine/Metabolic History: Reports: Hypothyroidism - Past Surgical History HEENT Surgical History: Reports: Myringotomy w Tube(s) Female Surgical History: Reports: Section - HOME MEDS Home Medications: Home Meds Levothyroxine Sodium [Synthroid] 75 mcg PO ACBREAKFAST 01/24/20 [History] Liothyronine [Cytomel] 5 mcg PO ACBREAKFAST 01/24/20 [History] nitrofurantoin macrocrystaL [Nitrofurantoin] 100 mg PO 01/24/20 [History] Docusate Sodium [Camacho' Laxative] 100 mg PO BID 30 Days #60 capsule 01/26/20 [Rx] Iron Polysaccharide Complex [Ferric X-150] 150 mg PO BID 30 Days #60 capsule 01/26/20 [Rx] - CURRENT (IN HOUSE) MEDS Current Meds: Current Medications Butorphanol Tartrate (Butorphanol 1 Mg/Ml Sdv) 1 mg IVPUSH Q1H PRN PRN Reason: Pain (severe 7-10) Carboprost Tromethamine (Carboprost Tromethamine 250 Mcg/1 Ml Amp) 250 mcg IM ASDIRECTED PRN PRN Reason: Post Hemorrhage Lactated Ringer's (Ringers, Lactated) 1,000 mls @ 150 mls/hr IV ASDIRECTED [place] Oxytocin/Sodium Chloride (Oxytocin 30 Unit In Ns 0.9% 500 Ml Premix) 30 unit in 500 mls @ 500 mls/hr IV TITRATE [place] Tranexamic Acid 1,000 mg/ (Sodium Chloride) 110 mls @ 660 mls/hr IV ONETIME PRN PRN Reason: Bleeding Lidocaine HCl (Lidocaine 1% 50 Ml Mdv) 50 ml INJECT ONETIME PRN PRN Reason: Laceration repair Methylergonovine Maleate (Methylergonovine 0.2 Mg/1 Ml Amp) 0.2 mg IM ASDIRECTED PRN PRN Reason: Post Hemorrhage Misoprostol (Misoprostol 200 Mcg Tab) 200 mcg PO ONETIME PRN PRN Reason: Post Hemorrhage Nalbuphine HCl (Nalbuphine 10 Mg/1 Ml Vial) 10 mg IVPUSH Q1H PRN PRN Reason: Pain (severe 7-10) Ondansetron HCl (Ondansetron 4 Mg/2 Ml Sdv) 4 mg IVPUSH Q4H PRN PRN Reason: Nausea/Vomiting Sodium Chloride (Sodium Chloride 0.9% 10 Ml Syringe) 10 ml FLUSH ASDIRECTED PRN PRN Reason: Keep Vein Open Sodium Chloride (Sodium Chloride 0.9% 2.5 Ml Syringe) 2.5 ml FLUSH ASDIRECTED PRN PRN Reason: Keep Vein Open Sodium Chloride (Sodium Chloride 0.9% 20 Ml Sdv) 10 ml IV ASDIRECTED PRN PRN Reason: IV Use Sterile Water (Water For Irrigation,Sterile 1,000 Ml Container) 1,000 ml IRR ASDIRECTED PRN PRN Reason: delivery Discontinued Medications Carboprost Tromethamine (Carboprost Tromethamine 250 Mcg/1 Ml Amp) Confirm Adm inistered Dose 250 mcg .ROUTE .STK-MED ONE Stop: 04/10/21 02:47 Oxytocin/Sodium Chloride (Oxytocin 30 Unit In Ns 0.9% 500 Ml Premix) Confirm Administered Dose 30 unit in 500 mls @ as directed .ROUTE .STK-MED ONE Stop: 04/10/21 02:24 Ropivacaine (Naropin 0.2%) Confirm Administered Dose 200 mls @ as directed .ROUTE .STK-MED ONE Stop: 04/10/21 02:35 Lidocaine (Lidocaine 2% 5 Ml Sdv) Confirm Administered Dose 5 ml .ROUTE .STK-MED ONE Stop: 04/10/21 02:35 Methylergonovine Maleate (Methylergonovine 0.2 Mg/1 Ml Amp) Confirm Administered Dose 0.2 mg .ROUTE .STK-MED ONE Stop: 04/10/21 02:47
[2021-04-10] MEDS ORDERED: ePHEDrine 50 MG/ML SDV IVPUSH PRN ×2 (02:57)
--- NOTE | 2021-04-10 02:57 | PCM.SN.2 ---
- Pre-Procedure Checklist Attending Provider Aware: Yes Chart Reviewed: Yes Consent Signed: Yes Labs Reviewed: Yes VS/FHR Reviewed: Yes Patient Identification Confirmation Method: Reports: Chart Visual, ID Band Visual, Verbal Patient Pt an Appropriate Candidate for the Planned Anesthesia: Yes Alternatives and Risks of Anesthesia Discussed w Pt/Guardian: Yes - Procedure Procedure Start Date: 04/10/21 Procedure Start Time: 02:[address]: Reports: Blood Pressure, Heart Rate, SPO2 Functional IV: Yes Safety Measures: Reports: Patient Identified, Procedure Verified, Site Verified, Procedure Time Out Patient Position: Reports: Left Lateral Prep: Reports: Alcohol x3, Betadine x3 Local Anesthetic: Reports: Intradermal Wheal w Lidocaine 1% Regional Placement Level: Reports: L2-3 Needle: Reports: 17 g Touhy Approach: Reports: Midline Technique: Reports: WATSON Glass Syringe Parasthesia: Reports: None Fluid Obtained: Reports: None Test Dose Medication: Reports: Lidocaine 1.5% w Epinephrine 1:200,000 Test Dose Response: Reports: Negative Loading Dose Time: 02:20 Loading Dose Medication: 2% Lidocaine 5cc Loading Dose Patient Position: AMINTA Continuous Infusion Start Time: 02:25 Continuous Infusion Medication: 0.2% Naropin Continuous Infusion Rate: 18 Continuous Infusion PCS Bolus Option: 4 Continuous Infusion Lockout Dose (cc/hr): 30 Patient Position Post Placement: Reports: Supline/AMINTA Post-procedure Pain Level: 3 VS and FHR Monitored in Unit Post Placement: Yes Procedure End Date: 04/10/21 Procedure End Time: 03:15 Procedure Comment: Patient is
[2021-04-10] MEDS ORDERED: Ropivacaine/PF 400 MG/200 ML PCA EPIDUR SCH (03:00)
[2021-04-10] MEDS ORDERED: Docusate Sodium 100 MG Cap PO PRN (03:28)
[2021-04-10] MEDS ORDERED: Ibuprofen 400 MG Tab PO PRN (03:28)
[2021-04-10] MEDS ORDERED: Benzocaine/Menthol 20%-0.5% Spray 78 GM Cannister TOP PRN (03:28)
[2021-04-10] MEDS ORDERED: Acetaminophen 500 MG Tab PO PRN (03:28)
[2021-04-10] MEDS ORDERED: Bisacodyl 10 MG Supp RECTAL PRN (03:28)
[2021-04-10] MEDS ORDERED: Lanolin 100% Cream 7 GM Tube TOP PRN (03:28)
[2021-04-10] MEDS ORDERED: Witch Hazel Medicated Pads 40/Jar TOP PRN (03:28)
--- NOTE | 2021-04-10 03:37 | PCM.DEL ---
L & D Note - General Info Date of Service: 04/10/21 Mother's Due Date: 04/08/21 - Delivery Note Labor: Spontaneous, Augmented by ARM Delivery Outcome: Livebirth Delivery Method: Spontaneous Vaginal Delivery-Single Presentation: Vertex Nuchal Cord: Present Anesthesia Type: Epidural Amniotic Fluid Description: Meconium Stained Episiotomy Type: None Laceration: None Placenta: Intact, Spontaneous Cord: 3 Vessels Estimated Blood Loss: 200 Resuscitation Needed: No Provider: Jenn Donohue Second Stage Interventions: Reports: Pushing Effectively - General Info Date of Service: 04/10/21 - Patient Data Lab Results Last 24 Hours: Laboratory Results - last 24 hr 04/10/21 Range/Units 02:00 WBC 10.38 (4.0-11.0) K/uL RBC 4.27 L (4.30-5.90) M/uL Hgb 10.3 L (12.0-16.0) g/dL Hct 32.1 L (36.0-46.0) % MCV 75.2 L (80.0-98.0) fL MCH 24.1 L (27.0-32.0) pg MCHC 32.1 (31.0-37.0) g/dL RDW Std Deviation 42.4 (28.0-62.0) fl RDW Coeff of Gabriel 16 H (11.0-15.0) % Plt Count 233 (150-400) K/uL MPV 10.80 (7.40-12.00) fL Nucleated RBC % 0.0 /100WBC Nucleated RBCs # 0 K/uL Med Orders - Current: Current Medications Ephedrine Sulfate (Ephedrine 50 Mg/Ml Sdv) 10 mg IVPUSH Q5M PRN PRN Reason: Hypotension Ephedrine Sulfate (Ephedrine 50 Mg/Ml Sdv) 10 mg IVPUSH Q1M PRN PRN Reason: Hypotension Miscellaneous Medication (Phenylephrine Hcl In 0.9% Nacl 1 Mg/10 Ml Syringe) 0.1 mg IVPUSH Q1M PRN PRN Reason: Hypotension Ropivacaine (Ropivacaine/Pf 400 Mg/200 Ml News Assistant) 400 mg EPIDUR ASDIRECTED [place] Sodium Chloride (Sodium Chloride 0.9% 10 Ml Syringe) 10 ml FLUSH ASDIRECTED PRN PRN Reason: Keep Vein Open Sodium Chloride (Sodium Chloride 0.9% 2.5 Ml Syringe) 2.5 ml FLUSH ASDIRECTED PRN PRN Reason: Keep Vein Open Sodium Chloride (Sodium Chloride 0.9% 20 Ml Sdv) 10 ml IV ASDIRECTED PRN PRN Reason: IV Use Discontinued Medications Butorphanol Tartrate (Butorphanol 1 Mg/Ml Sdv) 1 mg IVPUSH Q1H PRN PRN Reason: Pain (severe 7-10) Carboprost Tromethamine (Carboprost Tromethamine 250 Mcg/1 Ml Amp) Confirm Administered Dose 250 mcg .ROUTE .ST-MED ONE Stop: 04/10/21 02:47 Carboprost Tromethamine (Carboprost Tromethamine 250 Mcg/1 Ml Amp) 250 mcg IM ASDIRECTED PRN PRN Reason: Post Hemorrhage Oxytocin/Sodium Chloride (Oxytocin 30 Unit In Ns 0.9% 500 Ml Premix) Confirm Administered Dose 30 unit in 500 mls @ as directed .ROUTE .[place]-MED ONE Stop: 04/10/21 02:24 Ropivacaine (Naropin 0.2%) Confirm Administered Dose 200 mls @ as directed .ROUTE .[place]-MED ONE Stop: 04/10/21 02:35 Lactated Ringer's (Ringers, Lactated) 1,000 mls @ 150 mls/hr IV ASDIRECTED [place] Oxytocin/Sodium Chloride (Oxytocin 30 Unit In Ns 0.9% 500 Ml Premix) 30 unit in 500 mls @ 500 mls/hr IV TITRATE [place] Tranexamic Acid 1,000 mg/ (Sodium Chloride) 110 mls @ 660 mls/hr IV ONETIME PRN PRN Reason: Bleeding Lidocaine (Lidocaine 2% 5 Ml Sdv) Confirm Administered Dose 5 ml .ROUTE .[place]-MED ONE Stop: 04/10/21 02:35 Lidocaine HCl (Lidocaine 1% 50 Ml Mdv) 50 ml INJECT ONETIME PRN PRN Reason: Laceration repair Methylergonovine Maleate (Methylergonovine 0.2 Mg/1 Ml Amp) Confirm Administered Dose 0.2 mg .ROUTE .STK-MED ONE Stop: 04/10/21 02:47 Methylergonovine Maleate (Methylergonovine 0.2 Mg/1 Ml Amp) 0.2 mg IM ASDIRECTED PRN PRN Reason: Post Hemorrhage Misoprostol (Misoprostol 200 Mcg Tab) 200 mcg PO ONETIME PRN PRN Reason: Post Hemorrhage Nalbuphine HCl (Nalbuphine 10 Mg/1 Ml Vial) 10 mg IVPUSH Q1H PRN PRN Reason: Pain (severe 7-10) Ondansetron HCl (Ondansetron 4 Mg/2 Ml Sdv) 4 mg IVPUSH Q4H PRN PRN Reason: Nausea/Vomiting Sterile Water (Water For Irrigation,Sterile 1,000 Ml Container) 1,000 ml IRR ASDIRECTED PRN PRN Reason: delivery - Problem List Review Problem List Initiated/Reviewed/Updated: Yes - My Orders Last 24 Hours: My Active Orders 04/10/21 02:00 RED BLOOD CELLS LP [BBK] Urgent RPR (SYPHILIS SERO) W/ RFLX [REF] Routine TYPE AND SCREEN [BBK] Urgent 04/10/21 02:15 CORONAVIRUS COVID-19 CRISTÓBAL [MOLEC] Routine 04/10/21 02:44 Insert Urinary Catheter [OM.PC] Routine Peripheral IV Care [RC] . DIRECTED Sodium Chloride 0.9% [Normal Saline] 10 ml IV ASDIRECTED PRN Sodium Chloride 0.9% [Saline Flush] 10 ml FLUSH ASDIRECTED PRN Sodium Chloride 0.9% [Saline Flush] 2.5 ml FLUSH ASDIRECTED PRN DVT/VTE Prophylaxis Reflex [OM.PC] Routine Resuscitation Status Routine 04/10/21 02:45 Peripheral IV Insertion Adult [OM.PC] Routine 04/10/21 02:47 Urinary Catheter Assessment [RC] ASDIRECTED 04/10/21 02:48 Antiembolic Devices [RC] .Routine VTE/DVT Education [RC] PER UNIT ROUTINE 04/10/21 03:28 Patient Status [ADT] Routine May Shower [RC] ASDIRECTED Up ad Krystal [RC] ASDIRECTED Vital Signs [RC] PER UNIT ROUTINE RHIG WORKUP, [BBK] Routine Acetaminophen [Tylenol Extra Strength] 1,000 mg PO Q4H PRN Acetaminophen [Tylenol Extra Strength] 500 mg PO Q4H PRN Benzocaine/Menthol [Dermoplast Pain Relief 20%-0.5% [place]] 78 gm TOP ASDIRECTED PRN Docusate Sodium [Colace] 100 mg PO Q12H PRN Ibuprofen [Motrin] 400 mg PO Q4H PRN Ibuprofen [Motrin] 800 mg PO Q6H PRN Lanolin [Lansinoh HPA] See Dose Instructions TOP ASDIRECTED PRN bisacodyL [Dulcolax] 10 mg RECTAL ONETIME PRN witch Ritika [Tucks] 1 pad TOP ASDIRECTED PRN Assess Lochia [WOMSER] Per Unit Routine Assess Uterine Involution [WOMSER] Per Unit Routine Breast Pump [WOMSER] Per Unit Routine Ice Therapy [OM.PC] Per Unit Routine Perineal Care [OM.PC] Per Unit Routine Peripheral IV Discontinue [OM.PC] Routine 04/10/21 03:30 Cooling Warming Measures [RC] ASDIRECTED BLOOD GAS ARTERIAL UMBILICAL [BG] Routine BLOOD GAS VENOUS UMBILICAL [BG] Routine 04/10/21 Breakfast Regular Diet [DIET] 04/11/21 05:11 HEMOGLOBIN/HEMATOCRIT,HH [HEME] Timed - Assessment Assessment:: 31yo PPD0 s/p spontaneous labor and at 40w2d. complicated by multiple antibodies due to blood transfusions. Prior x1. - Plan Plan:: - monitor bleeding closely, 2u pRBC on hold - Rh negative, evaluate for rhogam - Rubella immune
[2021-04-10] MEDS: Acetaminophen 500 MG Tab PO PRN ×3 (04:16→18:06)
[2021-04-10] MEDS: Ibuprofen 800 MG Tab PO PRN ×2 (04:17→20:40)
--- NOTE | 2021-04-10 07:18 | OR ---
SURGEON: Magan Painting MD DATE OF PROCEDURE: 04/10/2021 INDICATION FOR PROCEDURE: 31-year-old G6, P4-0-1-4 at 40 weeks and 2 days, presenting with labor. The patient reports she had intermittent contractions for the past week, and tonight starting around 10 p.m., they became increasingly stronger and more regular. After presenting to Labor and Delivery, she was found to be 9 cm dilated. Membrane was intact. The patient has a history of one prior and 3 vaginal deliveries. She desired trial of labor. Risk of uterine rupture and increased risk of maternal and complications were discussed with her and she desires to proceed with trial of labor. She has antibodies to C, E, and K antigens due to blood transfusions with a hemorrhage after a miscarriage. She has been monitored closely in consultation with Perinatology. The baby had serial ultrasounds and normal MCA Dopplers, with no signs of anemia. She has a history of Shea thyroiditis that was monitored and has been stable during this . She is GBS negative. The baby had category 1 tracing. She desired an epidural for anesthesia, which she received with good pain control. AROM was performed with meconium-stained fluid. She then quickly became fully dilated with the urge to push. PREOPERATIVE DIAGNOSES: 1. Monzon intrauterine at 40 weeks and 2 days. 2. Active labor. 3. Trial of labor after section. 4. Maternal alloimmunization. 5. Prior section x1. POSTOPERATIVE DIAGNOSES: 1. Monzon intrauterine at 40 weeks and 2 days. 2. Active labor. 3. Vaginal after section. 4. Maternal alloimmunization. 5. Prior section x1. ANESTHESIA: Epidural. ANESTHESIOLOGIST: Dr. James Kwan. FINDINGS: Viable female , score of 8 and 9. Nuchal cord x1. Meconium-stained fluid. The weight of 4310 g. PROCEDURE PERFORMED: Normal spontaneous vaginal delivery. ESTIMATED BLOOD LOSS: 200 mL. DESCRIPTION OF THE PROCEDURE: The patient pushed with contractions for about 20 minutes with good descent. head delivered in occiput anterior position, restituted ROT. Anterior shoulder delivered easily followed by posterior shoulder and remaining body. There was a loose nuchal cord that was reduced after delivery. The baby was placed on maternal chest and evaluated by awaiting nursery staff. The baby was pink, crying vigorously, and moving all extremities shortly after delivery. The umbilical cord was clamped and cut after 30 seconds and no longer pulsating. Umbilical cord gases were obtained. The placenta was removed with gentle traction on the umbilical cord. It was examined to be intact with 3-vessel cord. Bimanual massage was performed and the uterus was firm at the umbilicus and the bleeding was light. Vagina and perineum were examined and she did not have any lacerations. The patient tolerated the procedure well, was given care instructions. CRAIG DIXON /[id number] MTDD
--- NOTE | 2021-04-11 09:19 | PCM.PNPP ---
- General Info Date of Service: 04/11/21 Functional Status: Reports: Pain Controlled, Tolerating Diet, Ambulating, Urinating - Review of Systems General: Reports: Fatigue. Denies: Fever, Weakness Pulmonary: Denies: Shortness of Breath Cardiovascular: Denies: Chest Pain, Palpitations, Lightheadedness Gastrointestinal: Denies: Abdominal Pain, Nausea, Vomiting Genitourinary: Denies: Flank Pain Musculoskeletal: Reports: No Symptoms Skin: Reports: No Symptoms Neurological: Reports: No Symptoms Psychiatric: Reports: No Symptoms - General Info Date of Service: 04/11/21 - Patient Data Vital Signs - Most Recent: Last Vital Signs Temp 36.6 C 04/11/21 07:58 Pulse 61 04/11/21 07:58 Resp 16 04/11/21 07:58 BP 106/55 L 04/11/21 07:58 Pulse Ox 98 04/11/21 07:58 Weight - Most Recent: 91.626 kg Lab Results - Last 24 Hours: Laboratory Results - last 24 hr 04/10/21 04/10/21 04/11/21 Range/Units 02:00 04:08 06:05 Hgb 8.6 L (12.0-16.0) g/dL Hct 27.6 L (36.0-46.0) % Blood Type A NEGATIVE Antibody Screen POSITIVE Antibody Identification Anti-K Screen NEGATIVE (NEGATIVE) RhIG Candidate? YES Rhogam Indicated YES, BABY RH POS H Crossmatch See Detail Med Orders - Current: Current Medications Acetaminophen (Acetaminophen 500 Mg Tab) 500 mg PO Q4H PRN PRN Reason: Pain (mild 1-3) Acetaminophen (Acetaminophen 500 Mg Tab) 1,000 mg PO Q4H PRN PRN Reason: Pain (mild 1-3) Last Admin: 04/10/21 18:06 Dose: 1,000 mg Documented by: Benzocaine/Menthol (Benzocaine/Menthol 20%-0.5% [place]ell 78 Gm Cannister) 78 gm TOP ASDIRECTED PRN PRN Reason: Perineal Comfort Measure Last Admin: 04/10/21 04:13 Dose: 1 spray Documented by: Bisacodyl (Bisacodyl 10 Mg Supp) 10 mg RECTAL ONETIME PRN PRN Reason: Constipation Docusate Sodium (Docusate Sodium 100 Mg Cap) 100 mg PO Q12H PRN PRN Reason: Constipation Last Admin: 04/10/21 04:15 Dose: 100 mg Documented by: Emollient Ointment (Lanolin 100% Cream 7 Gm Tube) 0 gm TOP ASDIRECTED PRN PRN Reason: Sore Nipples Last Admin: 04/10/21 20:40 Dose: 1 tube Documented by: Ephedrine Sulfate (Ephedrine 50 Mg/Ml Sdv) 10 mg IVPUSH Q5M PRN PRN Reason: Hypotension Ephedrine Sulfate (Ephedrine 50 Mg/Ml Sdv) 10 mg IVPUSH Q1M PRN PRN Reason: Hypotension Ibuprofen (Ibuprofen 400 Mg Tab) 400 mg PO Q4H PRN PRN Reason: Pain (mild 1-3) Ibuprofen (Ibuprofen 800 Mg Tab) 800 mg PO Q6H PRN PRN Reason: Cramping Last Admin: 04/10/21 20:40 Dose: 800 mg Documented by: Miscellaneous Medication (Phenylephrine Hcl In 0.9% Nacl 1 Mg/10 Ml Syringe) 0.1 mg IVPUSH Q1M PRN PRN Reason: Hypotension Ropivacaine (Ropivacaine/Pf 400 Mg/200 Ml Research Development Manager) 400 mg EPIDUR ASDIRECTED [place] Sodium Chloride (Sodium Chloride 0.9% 10 Ml Syringe) 10 ml FLUSH ASDIRECTED PRN PRN Reason: Keep Vein Open Sodium Chloride (Sodium Chloride 0.9% 2.5 Ml Syringe) 2.5 ml FLUSH ASDIRECTED PRN PRN Reason: Keep Vein Open Sodium Chloride (Sodium Chloride 0.9% 20 Ml Sdv) 10 ml IV ASDIRECTED PRN PRN Reason: IV Use Witch Cheyenne (Witch [place] Medicated Pads 40/Jar) 1 pad TOP ASDIRECTED PRN PRN Reason: comfort care Last Admin: 04/10/21 04:14 Dose: 1 pad Documented by: Discontinued Medications Butorphanol Tartrate (Butorphanol 1 Mg/Ml Sdv) 1 mg IVPUSH Q1H PRN PRN Reason: Pain (severe 7-10) Carboprost Tromethamine (Carboprost Tromethamine 250 Mcg/1 Ml Amp) Confirm Administered Dose 250 mcg .ROUTE .STK-MED ONE Stop: 04/10/21 02:47 Carboprost Tromethamine (Carboprost Tromethamine 250 Mcg/1 Ml Amp) 250 mcg IM ASDIRECTED PRN PRN Reason: Post Hemorrhage Oxytocin/Sodium Chloride (Oxytocin 30 Unit In Ns 0.9% 500 Ml Premix) Confirm Administered Dose 30 unit in 500 mls @ as directed .ROUTE .STK-MED ONE Stop: 04/10/21 02:24 Last Admin: 04/10/21 03:10 Dose: 999 mls/hr Documented by: Ropivacaine (Naropin 0.2%) Confirm Administered Dose 200 mls @ as directed .ROUTE .ST-MED ONE Stop: 04/10/21 02:35 Lactated Ringer's (Ringers, Lactated) 1,000 mls @ 150 mls/hr IV ASDIRECTED [place] Last Admin: 04/10/21 04:13 Dose: 150 mls/hr Documented by: Oxytocin/Sodium Chloride (Oxytocin 30 Unit In Ns 0.9% 500 Ml Premix) 30 unit in 500 mls @ 500 mls/hr IV TITRATE [place] Tranexamic Acid 1,000 mg/ (Sodium Chloride) 110 mls @ 660 mls/hr IV ONETIME PRN PRN Reason: Bleeding Lidocaine (Lidocaine 2% 5 Ml Sdv) Confirm Administered Dose 5 ml .ROUTE .[place]-MED ONE Stop: 04/10/21 02:35 Lidocaine HCl (Lidocaine 1% 50 Ml Mdv) 50 ml INJECT ONETIME PRN PRN Reason: Laceration repair Methylergonovine Maleate (Methylergonovine 0.2 Mg/1 Ml Amp) Confirm Administered Dose 0.2 mg .ROUTE .[place]-MED ONE Stop: 04/10/21 02:47 Methylergonovine Maleate (Methylergonovine 0.2 Mg/1 Ml Amp) 0.2 mg IM ASDIRECTE D PRN PRN Reason: Post Hemorrhage Misoprostol (Misoprostol 200 Mcg Tab) 200 mcg PO ONETIME PRN PRN Reason: Post Hemorrhage Nalbuphine HCl (Nalbuphine 10 Mg/1 Ml Vial) 10 mg IVPUSH Q1H PRN PRN Reason: Pain (severe 7-10) Ondansetron HCl (Ondansetron 4 Mg/2 Ml Sdv) 4 mg IVPUSH Q4H PRN PRN Reason: Nausea/Vomiting Sterile Water (Water For Irrigation,Sterile 1,000 Ml Container) 1,000 ml IRR ASDIRECTED PRN PRN Reason: delivery - Interaction Support Person: - Recovery Exam Fundal Tone: Firm Fundal Level: 2 Fingerbreadths Below Umbilicus Fundal Placement: Midline Lochia Amount: Scant Lochia Color: Rubra/Red Perineum Description: Intact, Minimal Bruising/Swelling Episiotomy/Laceration: None Bladder Status: Voiding Urinary Elimination: Voided - Exam General: Alert, Oriented Lungs: Normal Respiratory Effort Cardiovascular: Regular Rate, Regular Rhythm GI/Abdominal Exam: Normal Bowel Sounds, Soft Extremities: Pedal Edema (trace). No: Agusto's Sign Skin: Warm, Dry, Intact Neurological: No New Focal Deficit Psy/Mental Status: Alert, Normal Affect - Problem List & Annotations (1) Vaginal after () SNOMED Code(s): 710206215 Code(s): O34.219 - MATERNAL CARE FOR UNSP TYPE SCAR FROM PREVIOUS DEL Status: Acute Current Visit: Yes - Problem List Review Problem List Initiated/Reviewed/Updated: Yes - My Orders Last 24 Hours: My Active Orders 04/11/21 09:16 Ready for Discharge [RC] PER UNIT ROUTINE - Assessment Assessment:: 31yo PPD 1 s/p spontaneous labor and at 40w2d. complicated by multiple antibodies due to blood transfusions. Prior x1. - Plan Plan:: Doing well overall--VS are stable. Discharge to home. Discharge instructions reviewed. Follow up at [facility] 4 weeks. Advise vitamin and iron daily.
--- NOTE | 2021-04-11 10:16 | PCM48HPAN ---
Post Anesthesia Note - EVALUATION WITHIN 48HRS OF ANESTHETIC Vital Signs in Normal Range: Yes Patient Participated in Evaluation: Yes Respiratory Function Stable: Yes Airway Patent: Yes Cardiovascular Function Stable: Yes Hydration Status Stable: Yes Pain Control Satisfactory: Yes Nausea and Vomiting Control Satisfactory: Yes Mental Status Recovered: Yes Vital Signs: Last Vital Signs Temp 36.6 C 04/11/21 07:58 Pulse 61 04/11/21 07:58 Resp 16 04/11/21 07:58 BP 106/55 L 04/11/21 07:58 Pulse Ox 98 04/11/21 07:58 - COMMENTS/OBSERVATIONS Free Text/Narrative:: Pt states to being up and walking with no numbness or weakness.
== END 2021-04-11 15:55 | disposition home or self-care (01) | DRG 560 ==
LOC: MW.OBCHECK 02:06 → MW.OB 02:08 → MW.OBCHECK 02:45 → OBSVTOIN 03:10 → MW.OB 05:48
PROVIDERS: ADMIT Obstetrics & Gynecology; ATTEND Obstetrics & Gynecology
PROC: 10E0XZZ Delivery of Products of Conception, External Approach (ICD-10-PCS; principal; 2021-04-10)
PROC: 3E0R3BZ Introduction of Anesthetic Agent into Spinal Canal, Percutaneous Approach (ICD-10-PCS; 2021-04-10)
PROC: 00HU33Z Insertion of Infusion Device into Spinal Canal, Percutaneous Approach (ICD-10-PCS; 2021-04-10)
DX: O48.0 Post-term pregnancy (principal); O77.0 Labor and delivery complicated by meconium in amniotic fluid; Z37.0 Single live birth; O69.81X0 Labor and delivery complicated by cord around neck, without compression, not applicable or unspecified; Z3A.40 40 weeks gestation of pregnancy; Z20.822 Contact with and (suspected) exposure to COVID-19
CPT/HCPCS: 01967; 36415; 59025; 59409; 82803; 85014; 85018; 85027; 85460; 86592; 86850; 86870; 86900; 86901; 86902; 86920; 86921; 86922; A9270-GY; J2210; J2590; J2790; J2795; J7120; U0002